=== PATIENT | male | born 1980 | race Caucasian/White ===

== ENCOUNTER 2019-02-03 14:14 | Inpatient (IN) | payer BC ==
[2019-02-03] MEDS ORDERED: NA CHLORIDE 0.9% 1,000 ML ONE (17:12)
[2019-02-03] MEDS ORDERED: ONDANSETRON 4 MG/2 ML VIAL ONE (17:12)
[2019-02-03] MEDS ORDERED: FENTANYL CITR 100 MCG/2 ML ONE (17:12)
[2019-02-03 17:40] LABS: Absolute Lymphocytes (CBC) 1.3 K/uL (0.7-4.9); Absolute Monocytes 3.2 K/uL (0.1-1.3); Absolute Neutrophil 30.6 K/uL (1.8-8.0); Basophils % 0.3 % (0-1.3); Hematocrit 46.4 % (39.6-49.0); Lymphocytes % 3.6 % (15.3-44.8); MPV 9.7 fL (7.6-11.3); Monocytes % 9.1 % (3.3-12.3); RBC Red Blood Cell Count 5.37 M/uL (4.33-5.43)
[2019-02-03 17:56] LABS: Potassium 3.9 mmol/L (3.5-5.1)
[2019-02-03] MEDS ORDERED: NA CHLORIDE 0.9% 250 ML ONE (18:42)
[2019-02-03] MEDS ORDERED: VANCOMYCIN 1 GM/VIAL ONE (18:42)
[2019-02-03] MEDS ORDERED: PIPER/TAZO/NS 3.375gm 3.375 GM/100 ML BAG ONE (18:42)
[2019-02-03] MEDS ORDERED: INSULIN -REGULAR HUMAN 50 UNIT/0.5 ML ML ONE (18:49)
[2019-02-03] MEDS ORDERED: ACETAMINOPHEN 500 MG TAB ONE (18:51)
[2019-02-03] MEDS ORDERED: NA CHLORIDE 0.9% 500 ML ONE (18:52)
--- NOTE | 2019-02-03 18:58 | RAD REPORT ---
EXAM DESCRIPTION: CTAbdomen Pelvis W Contrast - 02/03/2019 6:40 pm CLINICAL HISTORY: Abdominal pain. left buttock cellulitis COMPARISON: No comparisons TECHNIQUE: Biphasic CT imaging of the abdomen and pelvis was performed with 100 ml non-ionic IV cont rast. All CT scans are performed using dose optimization technique as appropriate and may include automated exposure control or mA/KV adjustment according to patient size. FINDINGS: The lung bases are clear. The liver, spleen, pancreas, adrenal glands and kidneys are within normal limits. No bowel obstruction, free air, free fluid or abscess. The appendix is normal. No evidence of signi ficant lymphadenopathy. No suspicious bony findings. Moderate inflammatory changes are present in the left ischiorectal fossa and left perirectal tissues with 24 x 11 mm left-sided perirectal abscess seen. IMPRESSION: 24 x 11 mm left perirectal abscess.
--- NOTE | 2019-02-03 20:17 | EDPHYS ---
Physician Documentation [facility] Name: Kyrie Olivas Age: 38 yrs Sex: Male : 1980 Arrival Date: 02/03/2019 Time: 14:15 Bed 15 Private MD: ED Physician Chrissy Vegas HPI: 02/03 17:00 This 38 yrs old Male presents to ER via Ambulatory with complaints of Abscess.cp 17:00 The patient presents with an abscess of the buttocks, The patient presents with cp cellulitis of the buttocks. 17:00 Onset: The symptoms/episode began/occurred 4 day(s) ago. cp 17:00 Associated signs and symptoms: Pertinent positives: fever, rectal pain, Pertinent cp negatives: discharge, drainage. Modifying factors: the symptoms are aggravated by movement, pressure. Severity of symptoms: in the emergency department the symptoms are unchanged, despite home interventions. Historical: - Allergies: 14:34 Red Dye; hb - Home Meds: 14:34 None [Active]; hb - PMHx: 14:34 Diabetes - NIDDM; hb - PSHx: 14:34 Abscess; hb - Immunization history:: Adult Immunizations. - Social history:: Smoking status: Patient uses tobacco products, smokes one pack cigarettes per day. - Ebola Screening: : No symptoms or risks identified at this time. ROS: 17:05 Constitutional: Positive for chills, fever, Negative for body aches, poor PO intake. cp 17:05 Eyes: Negative for injury, pain, redness, and discharge. cp 17:05 ENT: Negative for drainage from ear(s), ear pain, sore throat, difficulty swallowing, difficulty handling secretions. 17:05 Cardiovascular: Negative for chest pain, palpitations. 17:05 Respiratory: Negative for cough, shortness of breath, wheezing. 17:05 Abdomen/GI: Positive for rectal pain, Negative for abdominal pain, vomiting, diarrhea, constipation, black/tarry stool, rectal bleeding. 17:05 Skin: Positive for cellulitis, of the buttocks, Negative for rash. 17:05 Neuro: Negative for altered mental status, headache, weakness. 17:05 All other systems are negative. Exam: 17:10 Constitutional: The patient appears in no acute distress, alert, awake, cp non-diaphoretic, well developed, well nourished, uncomfortable. 17:10 Head/Face: Normocephalic, atraumatic. cp 17:10 Eyes: Periorbital structures: appear normal, Pupils: equal, round, and reactive to light and accomodation, Extraocular movements: intact throughout, Conjunctiva: normal, no exudate, no injection, Sclera: no appreciated abnormality, Lids and lashes: appear normal, bilaterally. 17:10 ENT: External ear(s): are unremarkable, Nose: is normal, Mouth: Lips: moist, Oral mucosa: pink and intact, moist, Posterior pharynx: is normal, airway is patent, no erythema, no exudate. 17:10 Neck: ROM/movement: is normal, is supple, without pain, no range of motions limitations, no meningismus, no nuchal rigidity. 17:10 Chest/axilla: Inspection: normal, Palpation: is normal, no crepitus, no tenderness. 17:10 Cardiovascular: Rate: tachycardic, Rhythm: regular. 17:10 Respiratory: the patient does not display signs of respiratory distress, Respirations: normal, no use of accessory muscles, no retractions, no splinting, no tachypnea, labored breathing, is not present, Breath sounds: are clear throughout, no decreased breath sounds, no stridor, no wheezing. 17:10 Abdomen/GI: Inspection: abdomen appears normal, Bowel sounds: active, all quadrants, Palpation: abdomen is soft and non-tender, in all quadrants, rebound tenderness, is not appreciated, voluntary guarding, is not appreciated, involuntary guarding, is not appreciated, Rectal exam: tenderness, that is moderate. 17:10 Skin: cellulitis, that is mild, irregular, on the left buttock. 17:10 Neuro: Orientation: to person, place \T\ time. Mentation: is normal, Cerebellar function: is grossly normal, Motor: moves all fours, strength is normal, Sensation: is normal. Vital Signs: 14:33 BP 109 / 84; Pulse 106; Resp 20; Temp 99.5; Pulse Ox 99% on R/A; Pain 9/10; hb 15:00 Weight 79.38 kg (R); iw 18:20 BP 110 / 82; Pulse 96; Resp 17; Temp 102.9(O); Pulse Ox 98% on R/A; Pain 3/10; sg 20:11 BP 111 / 74; Pulse 91; Resp 16; Temp 99.6(O); Pulse Ox 98% on R/A; jb4 21:00 BP 90 / 58; Pulse 90; Resp 16; Pulse Ox 98% on R/A; jb4 22:00 BP 108 / 79; Pulse 91; Resp 16; Pulse Ox 100% on R/A; jb4 MDM: 16:34 Patient medically screened. 19:15 Data reviewed: vital signs, nurses notes, lab test result(s), radiologic studies, CT cp scan. 19:15 Response to treatment: the patient's symptoms have mildly improved after treatment, and cp as a result, I will admit patient. 20:10 Physician consultation: Saeid Noguera MD. 02/04 10:13 Physician consultation:. kyung 02/03 16:57 Order name: CBC with Diff; Complete Time: 00:01 cp 02/03 20:04 Interpretation: Normal except: WBC 35.2; HEIDY% 87.0; LYM% 3.6; NEUT A 30.6; MNA 3.2. 02/03 16:57 Order name: BMP; Complete Time: 18:04 02/03 19:06 Interpretation: Normal except: NA 128; CL 92; GLUC 352; GFR 66; CA 8.2. 02/03 16:57 Order name: Lactate; Complete Time: 18:04 cp 02/03 16:57 Order name: Procalcitonin; Complete Time: 18:34 02/03 16:57 Order name: Blood Culture Adult (2) 02/03 20:21 Order name: Manual Differential; Complete Time: 00:01 EDMS 02/04 00:01 Interpretation: Normal except: SEGS 82; BANDS [F] 4; LYM 5. cp 02/04 00:40 Order name: Lactate Sepsis 2 HR Follow-up; Complete Time: 10:12 EDMS 02/04 06:01 Order name: Basic Metabolic Panel; Complete Time: 10:12 EDMS 02/04 06:06 Order name: CBC with Automated Diff; Complete Time: 10:12 EDMS 02/04 08:13 Order name: Glucose, Ancillary Testing; Complete Time: 10:12 EDMS 02/04 08:13 Order name: Glucose, Ancillary Testing; Complete Time: 10:12 EDMS 02/04 08:13 Order name: Glucose, Ancillary Testing; Complete Time: 10:12 EDMS 02/04 08:13 Order name: Glucose, Ancillary Testing; Complete Time: 10:12 EDMS 02/04 12:44 Order name: Glucose, Ancillary Testing EDMS 02/03 16:57 Order name: CT Abd/Pelvis - W/Contrast; Complete Time: 19:05 cp 02/03 16:57 Order name: Accucheck Blood Glucose; Complete Time: 16:57 cp Administered Medications: 02/03 08:45 Drug: Tylenol 1000 mg Route: PO; sg 20:00 Follow up: Response: No adverse reaction; Temperature is decreased jb4 17:30 Drug: fentaNYL (PF) 25 mcg Route: IVP; Site: left antecubital; sg 17:30 Drug: Zofran 4 mg Route: IVP; Site: left antecubital; sg 18:35 Drug: NS 0.9% (30 ml/kg) 30 ml/kg Route: IV; Rate: bolus; Site: left antecubital; sg 21:45 Follow up: Response: No adverse reaction; IV Status: Completed infusion; IV Intake: jb4 2000ml 18:50 Drug: Zosyn 3.375 grams Route: IVPB; Infused Over: 60 mins; Site: left antecubital; sg 20:00 Follow up: Response: No adverse reaction; IV Status: Completed infusion jb4 18:50 Drug: Insulin Regular Human 10 units {Co-Signature: iw (Rima Boudreaux RN).} Route: sg IVP; Site: left antecubital; 18:54 Not Given (Other Intervention Used): NS 0.9% 1000 ml IV at 1 bolus Per protocol; 1000 sg mL bolus 20:29 Drug: vancoMYCIN 1 grams Route: IVPB; Infused Over: 2 hrs; Site: left antecubital; jb4 22:29 Follow up: Response: No adverse reaction; IV Status: Completed infusion; IV Intake: jb4 250ml 23:03 Not Given (Patient Refused): morphine 2 mg IVP once jb4 Disposition: 02/04 20:41 Co-signature as Attending Physician, Chrissy Vegas MD. ma2 Disposition: 02/03/19 20:17 Hospitalization ordered by Quinn Doe for Inpatient Admission. Preliminary diagnosis are Abscess of anal and rectal regions, Other sepsis. - Bed requested for Telemetry/MedSurg (Inpatient). - Status is Inpatient Admission. hb - Condition is Stable. - Problem is new. - Symptoms have improved. UTI on Admission? No Signatures: Dispatcher [employer] EDMS Evonne Rudolph RN AVTAR Analia Carrington RN AVTAR Arnulfo Liu RN RN Mino Vargas PA PA cp Catherine Newberry RN RN Colby Blanchard RN RN jb4 Chrissy Vegas MD MD ma2 Rima Boudreaux RN iw Corrections: (The following items were deleted from the chart) 02/03 19:06 19:06 Normal except: NA 128; CL 92; GLUC 352; GFR 66. cp cp 20:04 19:05 Normal except: WBC 35.2; HEIDY% 87.0; LYM% 3.6. cp cp 20:20 20:17 Hospitalization Ordered by Quinn Doe MD for Inpatient Admission. Preliminary diagnosis is Abscess of anal and rectal regions; Other sepsis. Bed requested for Telemetry/MedSurg (observation). Status is Inpatient Admission. Condition is Stable. Problem is new. Symptoms have improved. UTI on Admission? No. cp 02/04 12:42 02/03 20:20 02/03/2019 20:17 Hospitalization Ordered by Quinn Doe MD for Inpatient dw Admission. Preliminary diagnosis is Abscess of anal and rectal regions; Other sepsis. Bed requested for [facility] ER HOLD. Status is Inpatient Admission. Condition is Stable. Problem is new. Symptoms have improved. UTI on Admission? No. mw 02/04 13:37 12:42 02/03/2019 20:17 Hospitalization Ordered by Quinn Doe MD for Inpatient hb Admission. Preliminary diagnosis is Abscess of anal and rectal regions; Other sepsis. Bed requested for Telemetry/MedSurg (Inpatient). Status is Inpatient Admission. Condition is Stable. Problem is new. Symptoms have improved. UTI on Admission? No. dw
--- NOTE | 2019-02-03 20:17 | ER ---
Nurse's Notes [facility] Name: Kyrie Olivas Age: 38 yrs Sex: Male : 1980 Arrival Date: 02/03/2019 Time: 14:15 Bed 15 Private MD: Diagnosis: Abscess of anal and rectal regions;Other sepsis Presentation: 02/03 14:32 Presenting complaint: Abscess on left buttock x 3-4 days, subjective fever and N/V hb since yesterday. Transition of care: patient was not received from another setting of care. Onset of symptoms was January 30, 2019. Risk Assessment: Do you want to hurt yourself or someone else? Patient reports no desire to harm self or others. Care prior to arrival: None. 14:32 Method Of Arrival: Ambulatory hb 14:32 Acuity: GINO 3 hb Historical: - Allergies: 14:34 Red Dye; hb - Home Meds: 14:34 None [Active]; hb - PMHx: 14:34 Diabetes - NIDDM; hb - PSHx: 14:34 Abscess; hb - Immunization history:: Adult Immunizations. - Social history:: Smoking status: Patient uses tobacco products, smokes one pack cigarettes per day. - Ebola Screening: : No symptoms or risks identified at this time. Screenin:01 Abuse screen: Denies threats or abuse. Denies injuries from another. Nutritional sg screening: No deficits noted. Tuberculosis screening: No symptoms or risk factors identified. Never had TB. Fall Risk None identified. Assessment: 16:42 General: Appears in no apparent distress. uncomfortable, slender, well groomed, well sg developed, well nourished, Behavior is calm, cooperative, appropriate for age. Pain: Complains of pain in buttocks Quality of pain is described as tender. Neuro: Level of Consciousness is awake, alert, obeys commands. Cardiovascular: Capillary refill is brisk in bilateral fingers Patient's skin is warm and dry. Chest pain is denied. Respiratory: Airway is patent Respiratory effort is even, unlabored, Respiratory pattern is regular, symmetrical. GI: Abdomen is flat, non-distended, Bowel sounds present X 4 quads. : No signs and/or symptoms were reported regarding the genitourinary system. EENT: No signs and/or symptoms were reported regarding the EENT system. Derm: Skin is intact, is healthy with good turgor, Skin is dry, Skin is pale, Skin temperature is warm Abscess located on left gluteus micky is quarter sized, is red, is raised. Musculoskeletal: No signs and/or symptoms reported regarding the musculoskeletal system. 19:15 Reassessment: Patient appears in no apparent distress at this time. Patient and/or jb4 family updated on plan of care and expected duration. Pain level reassessed. Patient is alert, oriented x 3, equal unlabored respirations, skin warm/dry/pink. 20:11 Reassessment: Patient appears in no apparent distress at this time. Patient and/or jb4 family updated on plan of care and expected duration. Pain level reassessed. Patient is alert, oriented x 3, equal unlabored respirations, skin warm/dry/pink. Temp is 99.6, pt reports feeling better. 21:00 Reassessment: Patient appears in no apparent distress at this time. Patient and/or jb4 family updated on plan of care and expected duration. Pain level reassessed. Patient is alert, oriented x 3, equal unlabored respirations, skin warm/dry/pink. 22:00 Reassessment: Patient appears in no apparent distress at this time. Patient and/or jb4 family updated on plan of care and expected duration. Pain level reassessed. Patient is alert, oriented x 3, equal unlabored respirations, skin warm/dry/pink. Pt admitted to ER hold , See [facility] charting. Vital Signs: 14:33 BP 109 / 84; Pulse 106; Resp 20; Temp 99.5; Pulse Ox 99% on R/A; Pain 9/10; hb 15:00 Weight 79.38 kg (R); iw 18:20 BP 110 / 82; Pulse 96; Resp 17; Temp 102.9(O); Pulse Ox 98% on R/A; Pain 3/10; sg 20:11 BP 111 / 74; Pulse 91; Resp 16; Temp 99.6(O); Pulse Ox 98% on R/A; jb4 21:00 BP 90 / 58; Pulse 90; Resp 16; Pulse Ox 98% on R/A; jb4 22:00 BP 108 / 79; Pulse 91; Resp 16; Pulse Ox 100% on R/A; jb4 ED Course: 14:15 Patient arrived in ED. as 14:33 Triage completed. hb 14:33 Arm band placed on. hb 16:29 Mino Patel PA is PHCP. cp 16:29 Chrissy Vegas MD is Attending Physician. cp 16:57 Arnulfo Liu, RN is Primary Nurse. sg 17:00 No provider procedures requiring assistance completed. Initial lab(s) drawn, by me, sg sent to lab. First set of blood cultures drawn by me. Inserted saline lock: 20 gauge in left antecubital area, using aseptic technique. Blood collected. 17:10 Second set of blood cultures drawn by me. sg 18:[address] via wheelchair. vm2 18:40 CT Abd/Pelvis - W/Contrast In Process Unspecified. EDMS 19:00 Patient has correct armband on for positive identification. Placed in gown. Bed in low jb4 position. Call light in reach. Side rails up X 1. Pulse ox on. NIBP on. 20:16 Quinn Doe MD is Hospitalizing Provider. cp 22:00 Patient admitted, IV remains in place. [facility] 03 07:11 Primary Nurse role handed off by Arnulfo Liu, AVTAR 13:23 Catherine Newberry, AVTAR is Primary Nurse. hb Administered Medications: 02/03 08:45 Drug: Tylenol 1000 mg Route: PO; sg 20:00 Follow up: Response: No adverse reaction; Temperature is decreased jb4 17:30 Drug: fentaNYL (PF) 25 mcg Route: IVP; Site: left antecubital; sg 17:30 Drug: Zofran 4 mg Route: IVP; Site: left antecubital; sg 18:35 Drug: NS 0.9% (30 ml/kg) 30 ml/kg Route: IV; Rate: bolus; Site: left antecubital; sg 21:45 Follow up: Response: No adverse reaction; IV Status: Completed infusion; IV Intake: jb4 2000ml 18:50 Drug: Zosyn 3.375 grams Route: IVPB; Infused Over: 60 mins; Site: left antecubital; sg 20:00 Follow up: Response: No adverse reaction; IV Status: Completed infusion jb4 18:50 Drug: Insulin Regular Human 10 units {Co-Signature: iw (Rima Boudreaux RN).} Route: sg IVP; Site: left antecubital; 18:54 Not Given (Other Intervention Used): NS 0.9% 1000 ml IV at 1 bolus Per protocol; 1000 sg mL bolus 20:29 Drug: vancoMYCIN 1 grams Route: IVPB; Infused Over: 2 hrs; Site: left antecubital; jb4 22:29 Follow up: Response: No adverse reaction; IV Status: Completed infusion; IV Intake: jb4 250ml 23:03 Not Given (Patient Refused): morphine 2 mg IVP once jb4 Intake: 21:45 IV: 2000ml; Total: 2000ml. jb4 22:29 IV: 250ml; Total: 2250ml. jb4 Outcome: 20:17 Decision to Hospitalize by Provider. cp 22:00 Admitted to ER Hold. Please see [facility] for further documentation. jb4 22:00 Condition: stable 22:00 Discharge instructions given to patient, Instructed on the need for admit, Demonstrated understanding of instructions. 02/04 13:37 Patient left the ED. hb Signatures: Dispatcher [employer] EDMS Colette Cristina Steven, Milvia Aguilar RN, Irene, RN AVTAR iw Mino Patel PA PA cp Baxter, Heather, RN RN Colby Blanchard RN RN jb4 McGuire, Victoria [facility] Rima Boudreaux RN iw Corrections: (The following items were deleted from the chart) 00:49 02/03 22:00 Reassessment: Patient appears in no apparent distress at this time. Patient jb4 and/or family updated on plan of care and expected duration. Pain level reassessed. Patient is alert, oriented x 3, equal unlabored respirations, skin warm/dry/pink. jb4
[2019-02-03 20:21] LABS: Blood Morphology Comment NOT SEEN (NOT SEEN); Platelet Estimate ADEQ; Platelets, Giant PRESENT
--- NOTE | 2019-02-03 21:24 | P.HP ---
Certification for Inpatient Patient admitted to: Inpatient With expected LOS: >2 Midnights Practitioner: I am a practitioner with admitting privileges, knowledge of patient current condition, hospital course, and medical plan of care. Services: Services provided to patient in accordance with Admission requirements found in Title 42 Section 412.3 of the Code of Federal Regulations Patient History Date of Service: 02/03/19 Reason for admission: sepsis, perirectal abscess History of Present Illness: Mr Olivas is a 38 years old male with history of DM II, perirectal abscess, who came to ED complaining of progressive pain in his left buttock. He also has had fever at home. The pain is similar to previous episode of perirectal abscess. He denied any drainage. At arrival his temp was 99.5 F, BP 109/84. Lab work shows leukocytosis 35.2K, with bandemia, also elevated lactate and procalcitonin. CT abd/pelvis remarkable for a 24 x 11 mm left prerectal abscess. Allergies Red Dye Allergy (Uncoded 11/08/17 01:55) Unknown Home Medications: Metformin HCl [Glucophage*] 500 mg PO BIDWM #60 tab 11/08/17 Sulfamethoxazole/Trimethoprim [Bactrim Ds Tablet] 1 each PO BID #20 tablet 11/08 - Past Medical/Surgical History Diabetic: Yes -: NIDDM -: perirectal abscess -: I&D perirectal abscess - Social History Smoking Status: Current every day smoker Counseled patient to stop smoking for: less than 10 minutes Alcohol use: No CD- Drugs: No Caffeine use: No Place of Residence: Home Review of Systems 10-point ROS is otherwise unremarkable Physical Examination - Physical Exam General: Alert, In no apparent distress HEENT: Atraumatic, PERRLA, Mucous membr. moist/pink, EOMI, Sclerae nonicteric Neck: Supple, 2+ carotid pulse no bruit, No LAD, Without JVD or thyroid abnormality Respiratory: Clear to auscultation bilaterally, Normal air movement Cardiovascular: Regular rate/rhythm, Normal S1 S2 Gastrointestinal: Normal bowel sounds, No tenderness Musculoskeletal: No tenderness Integumentary: No rashes Neurological: Normal speech, Normal strength at 5/5 x4 extr, Normal tone, Normal affect Lymphatics: No axilla or inguinal lymphadenopathy Rectal: Induration (left perianal area), Tenderness - Studies Laboratory Data (last 24 hrs) 02/03/19 17:00: Sodium 128 L, Potassium 3.9, BUN 17, Creatinine 1.22, Glucose 352 H 02/03/19 17:00: WBC 35.2 H*, Hgb 15.9, Hct 46.4, Plt Count 174 Assessment and Plan - Problems (Diagnosis) (1) Diabetes mellitus Current Visit: Yes Status: Acute Qualifiers: Diabetes mellitus type: type 2 Diabetes mellitus shelter insulin use: without parts counterman use Diabetes mellitus complication status: with unspecified complications Qualified Code(s): E11.8 - Type 2 diabetes mellitus with unspecified complications (2) Perirectal abscess Onset Date: 11/08/17 Current Visit: No Status: Acute - Plan Will keep the patient NPO after MN, start empiric ABX treatment. blood cultures in process, Aggressive IV fluids. Consult Surgery for I&D. - Advance Directives Does patient have a Living Will: No Does patient have a Durable POA for Healthcare: Yes - Code Status/Comfort Care Code Status Assessed: Yes Code Status: Full Code
[2019-02-03] MEDS ORDERED: ACETAMINOPHEN 500 MG TAB PO PRN (21:54)
[2019-02-03] MEDS ORDERED: ONDANSETRON 4 MG/2 ML VIAL IV PRN (21:54)
[2019-02-03] MEDS: NA CHLORIDE 0.9% 1,000 ML IV SCH (22:00)
[2019-02-03] MEDS: KETOROLAC 30 MG/ML INJ IV PRN (22:30)
[2019-02-03] MEDS ORDERED: KETOROLAC 30 MG/ML INJ ONE (22:55)
[2019-02-04] MEDS ORDERED: INSULIN -REGULAR HUMAN 50 UNIT/0.5 ML ML ONE ×3 (00:44→12:54)
[2019-02-04 01:18] VITALS: BMI 28.2
[2019-02-04] MEDS ORDERED: ACETAMINOPHEN 500 MG TAB ONE (04:11)
[2019-02-04] MEDS ORDERED: PIPER/TAZO/NS 3.375gm 3.375 GM/100 ML BAG ONE ×2 (05:09→12:54)
[2019-02-04] MEDS ORDERED: KETOROLAC 30 MG/ML INJ ONE ×2 (05:09→12:54)
[2019-02-04] MEDS: KETOROLAC 30 MG/ML INJ IV PRN ×2 (05:35→12:55)
[2019-02-04] MEDS: PIPER/TAZO/NS 3.375gm 3.375 GM/100 ML BAG IVPB SCH ×5 (05:39→20:21)
[2019-02-04 05:59] LABS: Potassium 4.1 mmol/L (3.5-5.1)
[2019-02-04] MEDS: NA CHLORIDE 0.9% 1,000 ML IV SCH ×3 (06:00→21:02)
[2019-02-04] MEDS: INSULIN -REGULAR HUMAN 50 UNIT/0.5 ML ML SQ SCH ×5 (06:00→22:00)
[2019-02-04 06:04] LABS: Absolute Monocytes 2.5 K/uL (0.1-1.3); Absolute Neutrophil 25.6 K/uL (1.8-8.0); Basophils % 0.2 % (0-1.3); Hematocrit 42.3 % (39.6-49.0); Lymphocytes % 3.5 % (15.3-44.8); MPV 9.9 fL (7.6-11.3); Monocytes % 8.5 % (3.3-12.3)
[2019-02-04] MEDS ORDERED: NA CHLORIDE 0.9% 500 ML ONE (06:39)
[2019-02-04] MEDS ORDERED: VANCOMYCIN 1 GM/VIAL ONE (06:39)
[2019-02-04] MEDS: VANCOMYCIN 1.75 GM in NA CHLORIDE 0.9% 500 ML IVPB SCH ×2 (06:42→17:42)
[2019-02-04] MEDS ORDERED: NA CHLORIDE 0.9% 1,000 ML ONE ×2 (06:55→14:06)
[2019-02-04] MEDS ORDERED: VANCOMYCIN 1 GM in NA CHLORIDE 0.9% 500 ML IVPB SCH (09:00)
[2019-02-04] MEDS ORDERED: PROPOFOL 200 MG/20 ML VIAL IV ONE (14:56)
[2019-02-04] MEDS ORDERED: LIDOCAINE 2% MPF 5 ML VIAL ONE (14:56)
[2019-02-04] MEDS ORDERED: GLUCAGON 1 MG/VIAL IM PRN (15:08)
[2019-02-04] MEDS ORDERED: D50W 25 GM/50 ML SYRINGE IV PRN (15:08)
--- NOTE | 2019-02-04 15:25 | PREOPCON ---
Date of Consultation: 02/04/2019 Reason: Perirectal pain. History Of Present Illness: The patient is a 38-year-old gentleman who comes in with left-sided ted rectal pain over the last several days associated with low-grade fever. No drainage. Significant le ukocytosis. No diarrhea or constipation. No blood in his stool. Had previous such episode about a year ago. Then he underwent incision and drainage. No sore throat, runny nose, cough, headaches, or dizziness. No chest pain. Review of Systems: Otherwise unremarkable. Medical History: Significant for noninsulin dependent diabetes, perirectal abscess. Past Surgical History: Previous incision and drainage of perirectal abscess. Allergies: INCLUDE RED DYE. Social History: He does smoke. He has been counseled. He denies drinking. Family History: Noncontributory. Physical Examination: Vital Signs: Stable. Currently he is afebrile. Temperature is 99.4. General: He is awake, alert, oriented x3. Head and Neck: Cranial nerves 2 through 12 are grossly within normal limits. No neck masses. No JV D. Throat clear. Neck supple. Chest: Clear. Heart: S1, S2. Abdomen: Soft, nondistended, nontender. Positive bowel sounds. Extremities: Neurovascularly intact. Neuro: Nonfocal. Perirectal exam: Reveals left-sided marked induration and small fluctuance noted with erythema, warm th and edema. Laboratory Data: White count on admission was 35.2, currently is 29.1 with a left shift. Chemistry reviewed, glucose is 277. His lactic acid was 1.8 and that was 3 on admission. His procalcitonin is 1.72. He had a CT of the abdomen and pelvis done that showed 24 x 11 mm left perirectal abscess with modera te inflammatory changes present in the left ischiorectal fossa. Left perirectal tissue with 24 x 11 mm left-sided perirectal abscess seen. Assessment: Left perirectal abscess. Plan: Admit n.p.o., IV fluid, IV antibiotic, to the OR for exam under anesthesia, rigid proctoscopy, incision and drainage and debridement of left perirectal abscess. The patient probably has a fistul a, we will look for that, however we will await resolution of this acute process. He may need any co lorectal surgeon evaluation. The patient understands risks, benefits, and alternatives and agrees to procedure. /KAYLEN Voice ID: [id number] Report ID: [id number]
[2019-02-04] MEDS ORDERED: MIDAZOLAM HCL 2 MG/2 ML INJ ONE (15:49)
[2019-02-04] MEDS ORDERED: FENTANYL CITR 100 MCG/2 ML ONE (15:49)
[2019-02-04] MEDS ORDERED: ONDANSETRON 4 MG/2 ML VIAL ONE (15:49)
[2019-02-04] MEDS ORDERED: BUPIVACAINE 0.5% PF 10 ML VIAL ONE (15:49)
--- NOTE | 2019-02-04 16:29 | P.OP ---
Preoperative diagnosis: Left Antonina-Rectal Abscess Postoperative diagnosis: as above Primary procedure: EUA, I and D and Debridement Left Antonina-Rectal Abscess Anesthesia: General Estimated blood loss: min Specimen: pus Findings: as above Complications: None Transferred to: Recovery Room Condition: Good
[2019-02-04] MEDS ORDERED: CHLORHEXIDINE GLUCO 4% 120 ML TOP SCH (17:00)
[2019-02-04] MEDS ORDERED: PIPER/TAZO/NS 3.375gm 3.375 GM/100 ML BAG IVPB SCH (18:45)
[2019-02-04] MEDS: HYDROMORPHONE HCL 1 MG/ML INJ IV PRN (20:22)
[2019-02-04] MEDS: MUPIROCIN 2% OINT 22GM TUBE TOP SCH (20:22)
--- NOTE | 2019-02-04 22:39 | PN ---
Date of Progress Note: 02/04/2019 Subjective: Patient seen and examined. Chart reviewed and case discussed with RN and Dr. Noguera. Th e patient had I and D for perirectal abscess, did well postoperatively. Still having some pain. Medications: List reviewed. Physical Examination: Vital Signs: Temperature 97.6, heart rate 98, blood pressure 110/72, respirations 20, O2 98% on room air. General: Awake, alert, oriented x3. Some mild distress. Ill-appearing male. CV: S1, S2. Regular rate and rhythm. Peripheral pulses present. No murmurs. Respiratory: Moving air well bilaterally. No wheezing or stridor. Gastrointestinal: Abdomen is soft, nontender, nondistended. Positive bowel sounds. No guarding or rigidity. Extremities: No clubbing, cyanosis, or edema. Skin: The patient has left perirectal abscess. Neuro: Cranial nerves 2 through 12 intact grossly. No focal neurological deficits. Speech is goldie l. Laboratory Data: Sodium 133, potassium 4.1, chloride 100, CO2 25, BUN 20, creatinine 1.11, calcium 7 .2. WBC 29.1, H and H 14.7 and 42.3, platelets 164, neutrophils 87%. Blood cultures show no growth to date. Wound cultures are pending. Assessment And Plan: A 38-year-old male with 1.Perirectal abscess, status post incision and drainage. We will continue with IV antibiotics. The patient has a very high white count of 35,000, improved to 29,000. Cultures are pending. Appreciat e Dr. Noguera's input. 2.Diabetes mellitus type 2, gnp-sxulvff-ifgfxphnz, with hyperglycemia, uncontrolled. We will check hemoglobin A1c. Continue with sliding scale insulin and continue Accu-Cheks. 3.Overweight. Body mass index 28. 4.Deep vein thrombosis prophylaxis. No chemical anticoagulation due to surgery. Plan: 1.Continue on vanc and Zosyn. 2.Pain control. 3.Wound care. 4.Monitor cultures. 5.Likely discharge in the next 24-48 hours depending on clinical response. SA/MODL Voice ID: [id number] Report ID: [id number]
[2019-02-05] MEDS: PIPER/TAZO/NS 3.375gm 3.375 GM/100 ML BAG IVPB SCH ×3 (01:14→17:02)
[2019-02-05] MEDS: NA CHLORIDE 0.9% 1,000 ML IV SCH ×4 (01:14→22:00)
--- NOTE | 2019-02-05 02:10 | OP ---
Date of Procedure: 02/04/2019 Surgeon: Saeid Noguera MD Preoperative Diagnosis: Left perirectal abscess. Postoperative Diagnosis: Left perirectal abscess. Procedure: Exam under anesthesia, incision and drainage, and debridement of left perirectal abscess. Estimated Blood Loss: Minimal. Specimen: Pus. Findings: As above. Anesthesia: General. Complications: None. Disposition: The patient tolerated the procedure well in stable condition, taken to recovery in good general condition. Description Of Procedure: The patient was brought to the OR, placed in supine position. General ane sthesia was begun. The patient was placed in lithotomy position, prepped and draped in usual sterile fashion. Exam under anesthesia revealed marked induration in the entire left gluteal area next to t he anus. Rigid proctoscopy could not be done as the patient had liquid stool coming out of his anus. This was cleaned and then Marcaine 0.5% was infiltrated and a 5-cm incision was made radially in th e left side of the anus at the 5 o'clock position and then subcutaneous tissue was divided. Deep in the subcutaneous tissue, a large ischiorectal abscess was identified. Pus was evacuated. Loculation s were broken up. Cultures were done. Necrotic tissue was debrided. Wound was irrigated. Bleeding was controlled with cautery and then wet-to-dry normal saline dressing change was applied. The patient tolerated the procedure in stable condition and taken to recovery in good general condition. /MODL Voice ID: [id number] Report ID: [id number]
[2019-02-05] MEDS: HYDROCODONE/APAP 7.5/325 MG TAB PO PRN ×2 (04:48→10:13)
[2019-02-05] MEDS: VANCOMYCIN 1.75 GM in NA CHLORIDE 0.9% 500 ML IVPB SCH (05:37)
[2019-02-05] MEDS: INSULIN -REGULAR HUMAN 50 UNIT/0.5 ML ML SQ SCH ×4 (07:30→21:00)
[2019-02-05] MEDS: MUPIROCIN 2% OINT 22GM TUBE TOP SCH ×2 (09:01→21:22)
[2019-02-05 09:57] LABS: Absolute Lymphocytes (CBC) 1.5 K/uL (0.7-4.9); Absolute Monocytes 1.7 K/uL (0.1-1.3); Absolute Neutrophil 20.3 K/uL (1.8-8.0); Basophils % 0.3 % (0-1.3); Eosinophils % 0.1 % (0-4.4); Hematocrit 39.9 % (39.6-49.0); Lymphocytes % 6.3 % (15.3-44.8); MPV 9.6 fL (7.6-11.3); Monocytes % 7.2 % (3.3-12.3)
[2019-02-05 10:24] LABS: ALT/SGPT 22 U/L (12-78); AST/SGOT 17 U/L (15-37); Alkaline Phosphatase 104 U/L (45-117); BUN Blood Urea Nitrogen 14 mg/dL (7-18); Bicarbonate 26 mmol/L (21-32); Bilirubin Total 0.5 mg/dL (0.2-1.0); Glucose Level 198 mg/dL (74-106); Potassium 3.6 mmol/L (3.5-5.1); Protein, Total 5.5 g/dL (6.4-8.2); Sodium Level 136 mmol/L (136-145)
[2019-02-05] MEDS ORDERED: POTASSIUM 25 MEQ EFFERV TAB PO ONE (11:00)
[2019-02-05] MEDS: HYDROMORPHONE HCL 1 MG/ML INJ IV PRN ×2 (15:33→22:02)
--- NOTE | 2019-02-05 16:28 | PN ---
Date of Progress Note: 02/05/2019 Subjective: Patient is awake, alert, no complaint. Vital signs stable, afebrile. White count is do wn to 23.6. There is still a left shift. Chemistry reviewed. Glucose is 198. Hemoglobin A1c is 11 .4. Wound culture is pending. Assessment: Status post incision and drainage and debridement of left perirectal abscess. Recommendations: Continue IV antibiotics as ordered. Check cultures. Adjust antibiotics accordingl y. Continue the wound care as ordered. [facility] in my clinic upon disc harge. LAURA/MODPadmini Voice ID: [id number] Report ID: [id number]
--- NOTE | 2019-02-05 19:44 | PN ---
Date of Progress Note: 02/05/2019 Subjective: The patient is seen and examined. Chart reviewed and case discussed with RN and Dr. Ian potter. The patient is doing well. Pain is controlled. Medications: List reviewed. Objective: Vital Signs: Temperature 98.2, heart rate 96, blood pressure 103/61, respirations rate 1 9, O2 95% on room air. General: Awake, alert and oriented x3, in some mild distress due to pain, ill-appearing male. CV: S1, S2. Regular rate and rhythm. Peripheral pulses present. Respiratory: Moving air well bilaterally. No wheezing or stridor. Gastrointestinal: Abdomen is soft, nontender, nondistended. Positive bowel sounds. Extremities: No clubbing, cyanosis, edema. Skin: Rectal abscess, status post I and D and bandaged. Neurologic: Nonfocal. Laboratory Data: Sodium 136, potassium 3.6, chloride 103, CO2 26, BUN 14, creatinine 0.75, glucose 1 98. Hemoglobin A1c 11.4%. Lactate 0.7. Calcium 6.9, albumin is 2. Corrected calcium is 8.8. WBC 23.6, H and H 13.6 and 39.9, platelets 165, neutrophils 86%, no bands. Cultures, no growth to date. Wound cultures growing gram-positive cocci in pairs and chains. No ID or sensitivity available. Gr am-negative rods also present from other wound culture. Assessment And Plan: A 38-year-old male with: 1.Perirectal abscess, status post incision and drainage. Continue antibiotics. Blood cultures are negative, however, wound cultures growing gram-positive cocci and gram-negative rods. We will await ID and sensitivity. White count still elevated at 23,000. Dr. Noguera recommends outpatient followup with colorectal specialist. The patient may have fistula formation due to recurrent perirectal absce sses. 2.Pseudo hypocalcemia. Corrected calcium is 8.8 due to low albumin. We will continue to monitor. 3.Severe protein-calorie malnutrition. Albumin is 2. Dietitian referral. 4.Diabetes mellitus type 2 non-insulin requiring with hyperglycemia, uncontrolled. Hemoglobin A1c i s greater than 11%. We will start on long-acting insulin. Continue Accu-Cheks. 5.Overweight. BMI 28.2. Plan: Follow up on ID and sensitivity. Continue IV antibiotics, continue IV fluids, pain control an d wound care. Discharge in the next 24 to 48 hours depending on clinical response. /KAYLEN Voice ID: [id number] Report ID: [id number]
[2019-02-05] MEDS: VANCOMYCIN 2 GM in NA CHLORIDE 0.9% 500 ML IVPB SCH (19:50)
[2019-02-06] MEDS: PIPER/TAZO/NS 3.375gm 3.375 GM/100 ML BAG IVPB SCH ×3 (00:55→17:31)
[2019-02-06] MEDS: HYDROMORPHONE HCL 1 MG/ML INJ IV PRN ×5 (03:15→22:05)
[2019-02-06 04:55] LABS: Absolute Lymphocytes (CBC) 1.9 K/uL (0.7-4.9); Absolute Monocytes 1.8 K/uL (0.1-1.3); Absolute Neutrophil 20.6 K/uL (1.8-8.0); Basophils % 0.3 % (0-1.3); Eosinophils % 0.4 % (0-4.4); Hematocrit 39.7 % (39.6-49.0); Lymphocytes % 7.8 % (15.3-44.8); MPV 9.7 fL (7.6-11.3); Monocytes % 7.2 % (3.3-12.3); RBC Red Blood Cell Count 4.54 M/uL (4.33-5.43)
[2019-02-06 05:08] LABS: BUN Blood Urea Nitrogen 11 mg/dL (7-18); Bicarbonate 26 mmol/L (21-32); Glucose Level 180 mg/dL (74-106); Magnesium 2.3 mg/dL (1.8-2.4); Potassium 3.6 mmol/L (3.5-5.1); Sodium Level 137 mmol/L (136-145)
[2019-02-06 05:26] LABS: Blood Morphology Comment NOT SEEN (NOT SEEN); Platelet Estimate ADEQ
[2019-02-06] MEDS: VANCOMYCIN 2 GM in NA CHLORIDE 0.9% 500 ML IVPB SCH ×2 (06:46→17:31)
[2019-02-06] MEDS: INSULIN -REGULAR HUMAN 50 UNIT/0.5 ML ML SQ SCH ×4 (07:30→21:00)
[2019-02-06] MEDS ORDERED: POTASSIUM 25 MEQ EFFERV TAB PO ONE (09:00)
[2019-02-06] MEDS: NA CHLORIDE 0.9% 1,000 ML IV SCH ×3 (09:20→22:06)
[2019-02-06] MEDS: MUPIROCIN 2% OINT 22GM TUBE TOP SCH ×2 (09:21→22:05)
[2019-02-06] MEDS: INSULIN GLARGINE 100 UNITS/ML SQ SCH (09:36)
[2019-02-06] MEDS: HYDROCODONE/APAP 7.5/325 MG TAB PO PRN (10:27)
[2019-02-06 11:08] LABS: Urine Appearance CLEAR; Urine Bilirubin NEGATIVE (NEG); Urine Blood NEGATIVE (NEG); Urine Color YELLOW; Urine Glucose 2+ (NEG); Urine Protein NEGATIVE (NEG); Urine Specific Gravity 1.025 (1.005-1.030); Urine pH 6.5 (5.0-7.0)
[2019-02-06 11:10] LABS: Urine Microscopic Reflex ORDER UMIC
[2019-02-06 11:29] LABS: Urine Bacteria <20 /HPF (NONE SEEN); Urine Culture Reflex Order NOT NEEDED; Urine RBC <5 /HPF (NONE SEEN)
--- NOTE | 2019-02-06 11:45 | RAD REPORT ---
EXAM DESCRIPTION: US - Urinary Bladder - 02/06/2019 11:36 am CLINICAL HISTORY: Bladder distention, urinary hesitancy, pelvic pain and pressure COMPARISON: CT February 03, 2019 FINDINGS: No urinary bladder wall thickening or mass. Ureteral jets were not observed during the exa mination. Urinary volume was 616 milliliters. Prostate gland is not well visualized on this examinati on. IMPRESSION: No bladder wall thickening or mass. Urinary volume 616 milliliters.
--- NOTE | 2019-02-06 18:24 | PN ---
Date of Progress Note: 02/06/2019 Subjective: The patient is awake, alert, no complaint except for some pain. Objective: Vital Signs: Stable, afebrile. Skin: Examination of the wound reveals in adequate packing with the iodoform being used and the woun d is fairly large and needs to be packed a little bit better. There was some purulence in it, which was evacuated. There is still some induration, but there is no further fluctuance. This wound just needs better packing. The erythema and edema are getting better. Assessment: Status post incision and drainage, and debridement of left perirectal abscess, probably secondary to fistula. Recommendation: Continue wound care as ordered. Nursing staff was instructed on how to properly do the wound care. Continue antibiotics. His cultures are pending and his white count is still elevate d at 24,000. Please note, the Gram stain shows gram-positive cocci in pairs and chains. IV antibioti cs. Await culture and sensitivity. Adjust antibiotics accordingly. Wound care is ordered. The pat ient requires inpatient IV antibiotics until his leukocytosis is improved. /MODL Voice ID: [id number] Report ID: [id number]
--- NOTE | 2019-02-06 20:30 | PN ---
Date of Progress Note: 02/06/2019 Subjective: The patient is seen and examined. Chart reviewed and case discussed with RN and Dr. Ian potter. The patient is still having high white count, however, clinically does not appear to be septic. Has had some low-grade fevers 99.4. Blood pressure has been in the one-teens. Still having some pa in, but states that overall he feels better. Medications: List reviewed. Physical Examination: Vital Signs: Temperature 99.4, heart rate 81, blood pressure 108/56, respirations 16, O2 98% on room air. General: Awake, alert, oriented x3. Some mild distress, ill-appearing male. CV: S1, S2. Regular rate and rhythm. Peripheral pulses present. Respiratory: Moving air well bilaterally. No wheezing. Gastrointestinal: Abdomen is soft, nontender, nondistended. Positive bowel sounds. Extremities: No clubbing, cyanosis, edema. Neurologic: Nonfocal. Skin: Perirectal wound clean, dry, intact with decreased level of erythema and induration. Packing in place. Laboratory Data: Sodium 137, potassium 3.6, chloride 103, CO2 26, BUN 11, creatinine 0.68, glucose 1 80, calcium 7, magnesium 2.3. Lactate 0.9. WBC 24.5, H and H 13.5 and 39.7, platelets 192, neutroph ils 84%. Blood cultures, no growth to date. Wound culture shows gram-positive cocci in pairs and ch ains, however, no growth to date. Second wound cultures are growing gram-negative rods as well as gr am-positive cocci in pairs and chains. Bladder ultrasound shows urinary volume of 600 mL. Assessment And Plan: A 38-year-old male with: 1.Perirectal abscess status post incision and drainage. Cultures; pending. Preliminary cultures fr om the wound are growing gram-negative rods and gram-positive cocci. We will continue with broad-spe ctrum IV antibiotics. ID and sensitivity pending. White count trending up currently at 24,000. [place] is normal. The patient has some low-grade fevers. Still having some pain. Spoke with Dr. Analy carranza who reassessed the wound and does not think the patient needs to go back to the OR, however, stat es that there is most likely a fistula as the patient seems to be having some fecal material in the w ound. The patient will likely need colorectal surgery definitely as an outpatient and if does not im prove, perhaps as inpatient requiring transfer to higher level of care. For now, we will continue to monitor. 2.Pseudohypocalcemia. Corrected calcium, is normal. 3.Severe protein-calorie malnutrition. Albumin is 2. 4.Diabetes mellitus type 2, non-insulin requiring with hyperglycemia, uncontrolled. Hemoglobin A1c is greater than 11%. Lantus has been started at breakfast. Sliding scale insulin adjusted. Blood g lucose levels are slightly more improved today. We will continue to monitor. 5.Overweight, BMI 28.2. 6.Bladder distention with polyuria. I spoke with Dr. Alarcon who reassessed the CT scan, did not show any significant prostate enlargement. The patient may have a neurogenic bladder from his diabetes. We will place a Vasquez catheter for now and reassess and give voiding trial. Plan: DVT prophylaxis addressed. Continue antibiotics. Follow up on cultures. We will adjust IV f luids. We will continue IV fluids for now. Continue wound care. /KAYLEN Voice ID: [id number] Report ID: [id number]
[2019-02-07] MEDS: HYDROCODONE/APAP 7.5/325 MG TAB PO PRN ×3 (01:31→17:56)
[2019-02-07] MEDS: PIPER/TAZO/NS 3.375gm 3.375 GM/100 ML BAG IVPB SCH ×3 (01:32→17:23)
[2019-02-07] MEDS: NA CHLORIDE 0.9% 1,000 ML IV SCH ×3 (04:31→17:39)
[2019-02-07] MEDS: HYDROMORPHONE HCL 1 MG/ML INJ IV PRN ×4 (05:57→20:53)
[2019-02-07] MEDS: VANCOMYCIN 2 GM in NA CHLORIDE 0.9% 500 ML IVPB SCH ×2 (05:57→17:23)
[2019-02-07 06:31] LABS: Absolute Monocytes 2.4 K/uL (0.1-1.3); Absolute Neutrophil 17.3 K/uL (1.8-8.0); Basophils % 0.5 % (0-1.3); Eosinophils % 0.4 % (0-4.4); Hematocrit 40.8 % (39.6-49.0); MPV 9.7 fL (7.6-11.3); Monocytes % 11.1 % (3.3-12.3); RBC Red Blood Cell Count 4.69 M/uL (4.33-5.43)
[2019-02-07 06:52] LABS: ALT/SGPT 54 U/L (12-78); AST/SGOT 46 U/L (15-37); Albumin 1.7 g/dL (3.4-5.0); Alkaline Phosphatase 125 U/L (45-117); BUN Blood Urea Nitrogen 7 mg/dL (7-18); Bicarbonate 26 mmol/L (21-32); Bilirubin Total 0.5 mg/dL (0.2-1.0); Glucose Level 151 mg/dL (74-106); Potassium 3.5 mmol/L (3.5-5.1); Protein, Total 5.3 g/dL (6.4-8.2); Sodium Level 137 mmol/L (136-145)
[2019-02-07] MEDS: INSULIN -REGULAR HUMAN 50 UNIT/0.5 ML ML SQ SCH ×4 (07:30→20:52)
[2019-02-07] MEDS ORDERED: POTASSIUM CL SA 10 MEQ TAB PO ONE (07:42)
[2019-02-07] MEDS: INSULIN GLARGINE 100 UNITS/ML SQ SCH (08:27)
[2019-02-07] MEDS: MUPIROCIN 2% OINT 22GM TUBE TOP SCH ×2 (08:28→20:54)
--- NOTE | 2019-02-07 17:15 | PN ---
Date of Progress Note: 02/07/2019 Subjective: The patient is awake and alert, complaining of pain in the wound area. Objective: Vital signs: Stable. Afebrile. Laboratory Data: White count is down to 21,000. Lactic acid is normal. Examination wound reveals decreased erythema, edema, and induration. However, there is still purulen ce in the wound. This was evacuated and the wounds were irrigated. A wet-to-dry normal saline dress ing change was applied. Assessment: Status post incision and debridement of left perirectal abscess. Recommendations: Continue IV antibiotics. Wound care is ordered. We will change dressing twice a d ay. If his white count not improve over the next 24 hours to below 20,000, may benefit from getting a CT of the abdomen and pelvis to make sure that there is not a deeper collection that we are not add ressing. Plan of care discussed in detail with the patient as well as Dr. David. LAURA/KAYLEN Voice ID: [id number] Report ID: [id number]
[2019-02-07] MEDS ORDERED: HYDROMORPHONE HCL 1 MG/ML INJ IV ONE (20:51)
--- NOTE | 2019-02-07 22:07 | PN ---
Date of Progress Note: 02/07/2019 History: The patient seen and examined. Chart reviewed and case discussed with RN and Dr. Noguera. T he patient still having significant amount of pus from his wounds. Dressing changes have been increa sed to twice a day. The patient does appear to have neurogenic bladder, had to be catheterized due t o 600 mL of urine in the bladder. Medications: List reviewed. Physical Examination: Vital Signs: Temperature 99.6, heart rate 82, blood pressure 147/78, respirations 18, O2 96% on room air. General: Awake alert oriented x3. Some mild distress. Ill-appearing male. CV: S1, S2. No murmurs. Peripheral pulses present. Respiratory: Moving air well bilaterally. No wheezing or stridor. Gastrointestinal: Abdomen is soft, nontender, nondistended. Positive bowel sounds. Extremities: No clubbing, cyanosis, or edema. Neurologic: Nonfocal. Skin: Gluteal wound with packing with pustular drainage present. Laboratory Data: Sodium 137, potassium 3.5, chloride 103, CO2 26, BUN 7, creatinine 0.59, glucose 15 1, calcium 7.3, albumin 1.7. WBC 21.9, H and H 13.8 and 40.8, platelets 230, neutrophils 79%. Blood cultures, no growth to date. Wound culture growing out gram-negative rods and gram positive cocci i n pairs and chains. ID and sensitivity pending. Assessment And Plan: A 38-year-old male with: 1.Perirectal abscess status post incision and drainage. Culture showing gram-negative rods and gram -positive cocci. We will continue broad-spectrum IV antibiotics. We will switch over to meropenem. White count is still elevated at 21,000. Lactate is normal. The patient is not septic. The patien t is having some low-grade fevers 99.6. Blood cultures negative to date. Dressing changes adjusted. Appreciate Dr. Noguera's input. We will repeat CT scan in a.m. to assess for any further pockets of loculation or abscess, and need for further surgical intervention. 2.Severe protein-calorie malnutrition. Albumin is 1.7. 3.Diabetes mellitus type 2, non-insulin requiring, with hyperglycemia, uncontrolled. Blood glucose improved, sliding scale adjusted. We will continue to monitor. 4.Bladder distention with likely neurogenic bladder. We will continue with Vasquez catheter placement . Plan: Adjust antibiotics. Repeat CT scan in a.m. Continue to monitor for signs of sepsis. SA/MODL Voice ID: [id number] Report ID: [id number]
[2019-02-08] MEDS: HYDROCODONE/APAP 7.5/325 MG TAB PO PRN ×2 (00:01→18:56)
[2019-02-08] MEDS: NA CHLORIDE 0.9% 1,000 ML IV SCH ×3 (03:55→20:40)
[2019-02-08] MEDS: HYDROMORPHONE HCL 1 MG/ML INJ IV PRN ×4 (03:55→20:39)
[2019-02-08 05:00] LABS: Absolute Lymphocytes (CBC) 2.1 K/uL (0.7-4.9); Absolute Monocytes 2.9 K/uL (0.1-1.3); Absolute Neutrophil 17.5 K/uL (1.8-8.0); Basophils % 0.6 % (0-1.3); Hematocrit 40.1 % (39.6-49.0); Lymphocytes % 9.1 % (15.3-44.8); MPV 8.6 fL (7.6-11.3); Monocytes % 12.5 % (3.3-12.3); RBC Red Blood Cell Count 4.58 M/uL (4.33-5.43)
[2019-02-08 05:22] LABS: ALT/SGPT 60 U/L (12-78); AST/SGOT 34 U/L (15-37); Alkaline Phosphatase 116 U/L (45-117); BUN Blood Urea Nitrogen 7 mg/dL (7-18); Bicarbonate 27 mmol/L (21-32); Bilirubin Total 0.6 mg/dL (0.2-1.0); Glucose Level 141 mg/dL (74-106); Potassium 3.6 mmol/L (3.5-5.1); Sodium Level 139 mmol/L (136-145)
[2019-02-08 05:23] LABS: Albumin 1.8 g/dL (3.4-5.0); Protein, Total 5.4 g/dL (6.4-8.2)
[2019-02-08] MEDS ORDERED: POTASSIUM CL SA 10 MEQ TAB PO ONE (05:47)
[2019-02-08] MEDS: VANCOMYCIN 2 GM in NA CHLORIDE 0.9% 500 ML IVPB SCH (06:29)
[2019-02-08] MEDS: INSULIN -REGULAR HUMAN 50 UNIT/0.5 ML ML SQ SCH ×4 (07:30→20:34)
[2019-02-08] MEDS: MUPIROCIN 2% OINT 22GM TUBE TOP SCH ×2 (09:00→20:37)
[2019-02-08] MEDS: INSULIN GLARGINE 100 UNITS/ML SQ SCH (09:07)
--- NOTE | 2019-02-08 12:58 | PN ---
Date of Progress Note: 02/08/2019 Subjective: The patient is awake, alert, no complaints, currently. He says that when he is sitting still or lying down he has no problem. His vital signs are stable. He is afebrile. Laboratory Data: Shows a white count of 22.8, which is not significantly changed from yesterday. He does still have a left shift. Chemistry reviewed. His cultures did not grow any significant bacter ia. His dressing this morning is clean. Assessment: Status post incision and drainage of left perirectal abscess. Recommendations: As the patient's white count is not improving, I will discuss the case with Dr. Geni boyce. We will go ahead and repeat the CAT scan of the abdomen and pelvis and should there be a collect ion that needs further debridement, we will schedule him for tomorrow. We will make further recommen dation after CAT scan is done. In the meantime, continue antibiotics and wound care as ordered. LAURA/KAYLEN Voice ID: [id number] Report ID: [id number]
--- NOTE | 2019-02-08 13:40 | PN ---
Date of Progress Note: 02/08/2019 Subjective: The patient seen and examined. Chart reviewed and case discussed with RN and Dr. Noguera. The patient still has an elevated white count, has not spiked a temperature, does have some low-grade fevers of 99.9, not hypotensive or tachycardic, does not appear to be developing sepsis. The patient wanting Vasquez catheter out. He understands that he likely has a neurogenic bladder and will need to have bladder scan and possibly straight cath if not urinating adequate volumes. Medications: List reviewed. Physical Examination: Vital Signs: Temperature 98.9, heart rate 74, blood pressure 143/73, respirations 18, O2 97% on room air. General: Awake, alert, oriented x3, in some mild distress, ill-appearing male. CV: S1, S2. Regular rate and rhythm. Peripheral pulses present. Respiratory: Moving air well bilaterally. No wheezing or stridor. Gastrointestinal: Abdomen is soft, nontender, nondistended. Positive bowel sounds. Extremities: No clubbing, cyanosis, or edema. Neurologic: Nonfocal. Skin: Rectal abscess wound is soaked with some drainage, however, no bloody oozing. Laboratory Data: Sodium 139, potassium 3.6, chloride 104, CO2 27, BUN 7, creatinine 0.65, glucose 141, calcium 7.2, albumin 1.8. WBC 22.8, H and H 13.7/ 40.1, platelets 238, neutrophils 76%. Blood cultures, no growth to date. Wound cultures pending, shows gram-positive cocci and gram-negative rods, no ID or sensitivity. Abdomen and pelvis CT scan is pending. Assessment: A 38-year-old male with: 1. Perirectal abscess, status post I and D. Wound cultures growing gram- negative rods and gram-positive cocci. IV antibiotics have been adjusted. The patient's white count trending up to 22.8 with left shift. No signs of sepsis as of right now, however, suspicion is for worsening wound with possible abscess collection. We will repeat CT scan of the abdomen. Spoke with Dr. Noguera, who recommends taking the patient back to the OR in a.m. Especially if CT scan is positive, the patient may have a fistula present. 2. Severe protein-calorie malnutrition. Albumin 1.7. 3. Diabetes mellitus type 2, non-insulin requiring with hyperglycemia, uncontrolled. Sliding scale insulin has been adjusted. The patient has been added on long-acting insulin. We will continue to monitor. 4. Bladder distention with likely neurogenic bladder. We will discontinue Vasquez catheter. Monitor urine volume and may need to bladder scan and straight cath. Plan: Continue meropenem and add IV vancomycin. Follow up on CT scan abdomen. Possible procedure in a.m. /KAYLEN Voice ID: [id number] Report ID: [id number] [facility]
--- NOTE | 2019-02-08 13:52 | RAD REPORT ---
EXAM DESCRIPTION: CT - Abdomen Pelvis W Contrast - 02/08/2019 1:01 pm CLINICAL HISTORY: Abdominal pain COMPARISON: February 03, 2019 TECHNIQUE: Computed axial tomography of the abdomen pelvis was obtained. 100 cc Isovue-300 was admin istered intravenously. Oral contrast was given All CT scans are performed using dose optimization technique as appropriate and may include automated exposure control or mA/KV adjustment according to patient size. FINDINGS: Small left pleural effusion with mild left lower lobe atelectasis The liver, spleen, pancreas, adrenal and kidneys appear unremarkable. There is no evidence of diverticulitis. The appendix is normal Air is present within the left perineum, left perirectal fat and left ischial rectal fossa. An ill-de fined fluid collection containing air measuring 2.5 x 0.9 millimeters is present within the left isch ial rectal fossa. Additional ill-defined fluid is seen within the posterior left perineum. IMPRESSION: 2.5 x 0.9 millimeter ill-defined fluid collection containing air probably representing a bscess. Additional air and small amount of ill-defined fluid is seen within the left perineum, left p erirectal and left ischial rectal fossa which may represent additional infection or a combination of infection and postsurgical change.
[2019-02-08] MEDS ORDERED: HYDROMORPHONE HCL 1 MG/ML INJ IV ONE (14:43)
[2019-02-08] MEDS: PIPER/TAZO/NS 3.375gm 3.375 GM/100 ML BAG IVPB SCH ×3 (14:45→16:21)
[2019-02-08] MEDS: VANCOMYCIN 2.25 GM in NA CHLORIDE 0.9% 500 ML IVPB SCH (17:00)
[2019-02-09] MEDS: PIPER/TAZO/NS 3.375gm 3.375 GM/100 ML BAG IVPB SCH ×3 (00:25→16:46)
[2019-02-09] MEDS: HYDROCODONE/APAP 7.5/325 MG TAB PO PRN ×2 (00:30→13:42)
[2019-02-09] MEDS: HYDROMORPHONE HCL 1 MG/ML INJ IV PRN ×3 (04:14→21:11)
[2019-02-09] MEDS: VANCOMYCIN 2.25 GM in NA CHLORIDE 0.9% 500 ML IVPB SCH ×2 (04:15→16:45)
[2019-02-09] MEDS ORDERED: HYDROMORPHONE HCL 1 MG/ML INJ IV ONE (05:06)
[2019-02-09 05:11] LABS: Absolute Monocytes 2.3 K/uL (0.1-1.3); Absolute Neutrophil 15.5 K/uL (1.8-8.0); Eosinophils % 1.1 % (0-4.4); Hematocrit 41.3 % (39.6-49.0); Monocytes % 11.4 % (3.3-12.3); RBC Red Blood Cell Count 4.72 M/uL (4.33-5.43)
[2019-02-09 05:31] LABS: BUN Blood Urea Nitrogen 5 mg/dL (7-18); Bicarbonate 27 mmol/L (21-32); Glucose Level 165 mg/dL (74-106); Potassium 3.5 mmol/L (3.5-5.1); Sodium Level 140 mmol/L (136-145)
[2019-02-09] MEDS: INSULIN -REGULAR HUMAN 50 UNIT/0.5 ML ML SQ SCH ×4 (07:30→21:12)
[2019-02-09] MEDS: MUPIROCIN 2% OINT 22GM TUBE TOP SCH ×2 (08:21→21:00)
[2019-02-09] MEDS ORDERED: BUPIVACAINE 0.5% PF 10 ML VIAL ONE (09:01)
[2019-02-09] MEDS ORDERED: PROPOFOL 200 MG/20 ML VIAL IV ONE (09:13)
[2019-02-09] MEDS ORDERED: FENTANYL CITR 100 MCG/2 ML ONE ×3 (09:14→09:42)
[2019-02-09] MEDS ORDERED: LIDOCAINE 2% MPF 5 ML VIAL ONE (09:14)
[2019-02-09] MEDS ORDERED: DEXAMETHASONE 10 MG/ML VIAL ONE (09:28)
[2019-02-09] MEDS ORDERED: ONDANSETRON 4 MG/2 ML VIAL ONE (09:38)
--- NOTE | 2019-02-09 09:39 | P.OP ---
Preoperative diagnosis: Left Antonina-Rectal Abscess Postoperative diagnosis: same Primary procedure: EUA, I and D and Debridement Left Antonina-Rectal Abscess Anesthesia: gen Estimated blood loss: min Specimen: pus Findings: as above Complications: None Transferred to: Recovery Room Condition: Good
[2019-02-09] MEDS: HYDROMORPHONE HCL 1 MG/ML INJ ONE ×4 (09:55→10:29)
[2019-02-09] MEDS ORDERED: KETOROLAC 30 MG/ML INJ ONE (09:56)
[2019-02-09] MEDS ORDERED: NA CHLORIDE 0.9% 1,000 ML ONE (09:58)
[2019-02-09] MEDS: NA CHLORIDE 0.9% 1,000 ML IV SCH ×2 (11:15→21:12)
[2019-02-09] MEDS: INSULIN GLARGINE 100 UNITS/ML SQ SCH (11:16)
[2019-02-09] MEDS ORDERED: POTASSIUM 25 MEQ EFFERV TAB PO ONE (12:00)
--- NOTE | 2019-02-09 14:27 | PN ---
Date of Progress Note: 02/09/2019 History Of Present Illness: Patient seen and examined. Chart reviewed and case discussed with RN. The patient went for repeat I and D today by Dr. Noguera. The patient does report some pain. Medications: List reviewed. Physical Examination: Vital Signs: Temperature 98.6, heart rate 77, blood pressure 138/70, respirations 16, O2 98% on room air. General: Awake, alert, oriented x3, in some mild distress, ill-appearing male. CV: S1, S2. Regular rate and rhythm. Peripheral pulses present. Respiratory: Moving air well bilaterally. No wheezing or stridor. Gastrointestinal: Abdomen is soft, nontender, nondistended. Positive bowel sounds. Extremities: No clubbing, cyanosis, or edema. Neurologic: Nonfocal. Skin: Incision site bandaged; clean, dry, intact. Laboratory Data: Sodium 140, potassium 3.5, chloride 104, CO2 27, BUN 5, creatinine 0.58, glucose 16 5, calcium 7.5. WBC 20.2, H and H 14/41.3, platelets 306, neutrophils 76%. Cultures no growth to da te. Wound cultures pending. Assessment And Plan: A 38-year-old male with: 1.Perirectal abscess status post repeat I and D of the left perirectal abscess. The patient underwe nt exam under anesthesia and I and D today by Dr. Noguera. The patient still has elevated white count; has been spiking low-grade fevers. Blood cultures have been negative; however, wound cultures are s till pending. We will continue with wound care. 2.Severe protein-calorie malnutrition. Albumin is 1.7. Diet supplementation. 3.Diabetes mellitus type 2, ogk-zzhzmwz-jtslluqvi, with hyperglycemia, uncontrolled. We will contin ue sliding scale insulin and long-acting insulin has been initiated. 4.Bladder distention. The patient likely has neurogenic bladder. We will need to follow with Urolo gy as outpatient. Plan: Continue IV antibiotics. Follow up on cultures and continue wound care. /KAYLEN Voice ID: [id number] Report ID: [id number]
--- NOTE | 2019-02-09 19:39 | OP ---
Date of Procedure: 02/09/2019 Surgeon: Saeid Noguera MD Preoperative Diagnosis: Left perirectal abscess. Postoperative Diagnosis: Left perirectal abscess. Procedure: Incision, drainage, and debridement of left perirectal abscess. Estimated Blood Loss: Minimal. Specimen: Pus. Findings: As above. Anesthesia: General. Complications: None. Disposition: The patient tolerated the procedure well in stable condition, taken to Recovery in good general condition. Procedure In Detail: The patient was brought to the OR, placed in supine position. General anesthes ia was begun. The patient was placed in lithotomy position, prepped and draped in usual sterile fash ion. Marcaine 0.5% was infiltrated locally. The findings of the CAT scan were discussed in detail p rior to the surgery with Dr. Alarcon. The patient had 2 separate collections that were of concern, one at the 1-2 o'clock position and the other one at 5-6 o'clock position. The previous incision was ext ended superiorly and inferiorly. There was a flap of skin, which was excised, and then deep dissecti on proceeded to find deep pockets in both those areas and they were evacuated. Loculations were brok en up. Necrotic tissue was debrided. Cultures were done again. The wound was irrigated. Bleeding controlled with cautery and then wet-to-dry normal saline dressing change was applied. The patient tolerated the procedure in stable condition, was taken to Recovery i n good general condition. /MODL Voice ID: [id number] Report ID: [id number]
[2019-02-10] MEDS: HYDROCODONE/APAP 7.5/325 MG TAB PO PRN ×2 (00:38→11:26)
[2019-02-10] MEDS: PIPER/TAZO/NS 3.375gm 3.375 GM/100 ML BAG IVPB SCH ×3 (00:38→16:15)
[2019-02-10] MEDS: HYDROMORPHONE HCL 1 MG/ML INJ IV PRN ×6 (02:05→23:49)
[2019-02-10 04:43] LABS: Absolute Lymphocytes (CBC) 2.1 K/uL (0.7-4.9); Absolute Monocytes 2.3 K/uL (0.1-1.3); Absolute Neutrophil 20.8 K/uL (1.8-8.0); Basophils % 0.4 % (0-1.3); Hematocrit 41.5 % (39.6-49.0); Lymphocytes % 8.4 % (15.3-44.8); MPV 8.9 fL (7.6-11.3); RBC Red Blood Cell Count 4.74 M/uL (4.33-5.43)
[2019-02-10 05:15] LABS: BUN Blood Urea Nitrogen 10 mg/dL (7-18); Bicarbonate 26 mmol/L (21-32); Glucose Level 262 mg/dL (74-106); Sodium Level 137 mmol/L (136-145)
[2019-02-10] MEDS: VANCOMYCIN 2.25 GM in NA CHLORIDE 0.9% 500 ML IVPB SCH (06:34)
[2019-02-10] MEDS: INSULIN -REGULAR HUMAN 50 UNIT/0.5 ML ML SQ SCH ×4 (07:30→21:40)
[2019-02-10 08:36] LABS: Platelet Estimate ADEQ
[2019-02-10 08:37] LABS: Blood Morphology Comment NOT SEEN (NOT SEEN)
[2019-02-10] MEDS: MUPIROCIN 2% OINT 22GM TUBE TOP SCH ×2 (09:00→21:00)
[2019-02-10] MEDS ORDERED: MORPHINE 2 MG/ML SYR IV ONE (09:19)
[2019-02-10] MEDS ORDERED: MORPHINE 2 MG/ML SYR IV PRN (09:35)
[2019-02-10] MEDS: NA CHLORIDE 0.9% 1,000 ML IV SCH ×2 (09:41→17:13)
[2019-02-10] MEDS: INSULIN GLARGINE 100 UNITS/ML SQ SCH (09:42)
--- NOTE | 2019-02-10 16:01 | PN ---
Date of Progress Note: 02/10/2019 Subjective: The patient is awake, alert, feels much better than yesterday before surgery. Objective: Vital Signs: Stable, afebrile. Cultures from the recent surgery are pending. Gram-negative tho is seen in the Gram stain. Examinat ion of the wound reveals no active purulence. No evidence of bleeding. Assessment: Status post incision and drainage debridement of a deep perirectal abscess. Recommendations: Continue IV antibiotics and wound care as ordered. Please note, the white count is elevated, it will be today and hopefully it will start going down. Once it gets down below 15,000 a nd wound is clean and cultures reveal, then patient can be discharged home, hopefully in 24 to 48 prema rs. SANCHEZ/KAYLEN Voice ID: [id number] Report ID: [id number]
[2019-02-10] MEDS: LIDOCAINE VISCOUS 2% SOLN 15 ML UDC TOP PRN (16:15)
[2019-02-10] MEDS ORDERED: BISACODYL 10 MG RECTAL SUPP PR PRN (16:25)
[2019-02-10] MEDS: VANCOMYCIN 2.5 GM in NA CHLORIDE 0.9% 500 ML IVPB SCH (17:13)
--- NOTE | 2019-02-10 18:22 | PN ---
Date of Progress Note: 02/10/2019 Subjective: The patient seen and examined, chart reviewed and case discussed with RN and Dr. Noguera. he patient states he feels significantly better after the repeat surgery. His pain has improved, ho wever, requesting something for pain during packing changing. Medications: List reviewed. Objective: Vital Signs: Temperature 98.1, heart rate 71, blood pressure 139/76, respirations 18, O2 97% on room air. General: Awake, alert oriented x3, ill-appearing male, in some mild distress. CV: S1, S2. Regular rate and rhythm. Peripheral pulses present. Respiratory: moving air well bilaterally. No wheezing or stridor. Gastrointestinal: Abdomen is soft, nontender, nondistended. Positive bowel sounds. Extremities: No clubbing, cyanosis, or edema. Neurologic: Nonfocal. Skin: Right gluteal wound with packing in place. No induration felt. Laboratory Data: Sodium 137, potassium 4, chloride 103, CO2 26, BUN 10, creatinine 0.68, glucose 262 , calcium 7.6. WBC 25.4, H and H 14.1 and 41.5, platelets 383, neutrophils 82%, 3% bands. Blood cul tures no growth. Final repeat wound cultures pending, so far growing 2+ gram-negative rods. Previou s wound culture growing presumptive Bacteroides fragilis group, beta lactamase positive; anaerobic, g keny-negative rods. Assessment: A 38-year-old male with: 1.Perirectal abscess, status post repeat incision and drainage of the abscess, underwent exam under anesthesia and repeat incision and drainage has improved white count however still trending up with b andemia, likely reactive to the surgery. We will send off peripheral blood smear to rule out other c auses of persistent white count elevation, however, with his significant infection, poor hygiene, pos sibility of fistula and improvement with repeat incision and drainage. Clinically, would suspect twyla t this is due to infectious process. Wound cultures growing Bacteroides. Repeat cultures are pendin g. Continue broad-spectrum IV antibiotics. 2.Severe protein-calorie malnutrition. Albumin 1.7. We will continue protein supplementation. 3.Diabetes mellitus type 2 grd-xotjubi-zxbrimsoz with hyperglycemia, not well controlled. Insulin d ose has been adjusted. We will monitor Accu-Cheks. 4.Bladder distention, likely a neurogenic bladder. Consult Urology once available or as outpatient. 5.Deep vein thrombosis prophylaxis, addressed. Plan: The patient will need significant wound care as outpatient, may need to be set up with home he alth or other. May benefit from [facility] facility or even LTAC for wound care and diabetes ma nagement and antibiotics. We will continue to monitor. /KAYLEN Voice ID: [id number] Report ID: [id number]
[2019-02-10] MEDS ORDERED: TAMSULOSIN 0.4 MG SR CAP PO SCH (21:00)
[2019-02-10] MEDS: DOCUSATE NA 100 MG CAP PO SCH (21:39)
[2019-02-11 01:03] VITALS: O2SAT 97
[2019-02-11] MEDS: NA CHLORIDE 0.9% 1,000 ML IV SCH (01:45)
[2019-02-11] MEDS: PIPER/TAZO/NS 3.375gm 3.375 GM/100 ML BAG IVPB SCH (01:48)
[2019-02-11 04:31] LABS: Absolute Lymphocytes (CBC) 2.7 K/uL (0.7-4.9); Absolute Monocytes 1.1 K/uL (0.1-1.3); Absolute Neutrophil 10.8 K/uL (1.8-8.0); Basophils % 1.5 % (0-1.3); Eosinophils % 0.9 % (0-4.4); Hematocrit 37.3 % (39.6-49.0); Lymphocytes % 17.9 % (15.3-44.8); MPV 8.2 fL (7.6-11.3); Monocytes % 7.2 % (3.3-12.3); RBC Red Blood Cell Count 4.21 M/uL (4.33-5.43)
[2019-02-11 04:43] LABS: ALT/SGPT 46 U/L (12-78); AST/SGOT 20 U/L (15-37); Albumin 1.7 g/dL (3.4-5.0); Alkaline Phosphatase 92 U/L (45-117); BUN Blood Urea Nitrogen 11 mg/dL (7-18); Bicarbonate 26 mmol/L (21-32); Bilirubin Total 0.4 mg/dL (0.2-1.0); Glucose Level 209 mg/dL (74-106); Potassium 3.6 mmol/L (3.5-5.1); Protein, Total 5.6 g/dL (6.4-8.2); Sodium Level 141 mmol/L (136-145)
[2019-02-11] MEDS: HYDROMORPHONE HCL 1 MG/ML INJ IV PRN (04:54)
[2019-02-11] MEDS: VANCOMYCIN 2.5 GM in NA CHLORIDE 0.9% 500 ML IVPB SCH (04:54)
[2019-02-11] MEDS: MUPIROCIN 2% OINT 22GM TUBE TOP SCH ×2 (09:00→20:02)
[2019-02-11] MEDS ORDERED: POTASSIUM 25 MEQ EFFERV TAB PO ONE (09:00)
[2019-02-11] MEDS: INSULIN -REGULAR HUMAN 50 UNIT/0.5 ML ML SQ SCH ×4 (09:28→21:00)
[2019-02-11] MEDS: DOCUSATE NA 100 MG CAP PO SCH ×2 (09:29→20:01)
[2019-02-11] MEDS: POLYETHYL GLY 3350 17 GM/DOSE PO SCH (09:29)
[2019-02-11] MEDS: SMZ./TMP. 800/160 MG TABLET PO SCH ×2 (09:29→20:01)
[2019-02-11] MEDS: INSULIN GLARGINE 100 UNITS/ML SQ SCH (09:32)
[2019-02-11] MEDS: HYDROCODONE/APAP 7.5/325 MG TAB PO PRN ×3 (09:37→22:51)
--- NOTE | 2019-02-11 11:15 | P.PN ---
Subjective Date of Service: 02/11/19 Chief Complaint: sepsis, perirectal abscess Patient seen and examined at bedside with RN. Chart reviewed. Case discussed with general surgery. Overnight no complaints to offer at this time. Doing well overall Review of Systems 10-point ROS is otherwise unremarkable Physical Examination - Vital Signs Temperature: 97.6 F Blood Pressure: 140/76 Pulse: 59 Respirations: 18 Pulse Ox (%): 97 - Physical Exam General: Alert, In no apparent distress HEENT: Atraumatic, PERRLA, EOMI Neck: Supple, JVD not distended Respiratory: Clear to auscultation bilaterally, Normal air movement Cardiovascular: Regular rate/rhythm, Normal S1 S2 Gastrointestinal: Normal bowel sounds, No tenderness Musculoskeletal: No tenderness Integumentary: Other (Perirectal wound clean dry and intact. Currently with packing. Minimal drainage noted) Neurological: Normal speech, Normal tone, Normal affect Lymphatics: No axilla or inguinal lymphadenopathy - Studies Medications List Reviewed: Yes Assessment And Plan - Current Problems (Diagnosis) (1) Perirectal abscess Onset Date: 11/08/17 Current Visit: No Status: Acute Plan: Perirectal abscess secondary to poorly-controlled diabetes -status post repeat incision and drainage of the abscess x 2 with General Surgery -currently on IV Zosyn and vancomycin at this time. -wound culture positive for E. coli sensitive to Bactrim will switch to oral antibiotics today -will continue with wound care here in the hospital -appreciated General surgery's recommendations at this time (2) Poorly controlled diabetes mellitus Onset Date: 11/08/17 Current Visit: No Status: Chronic - Plan Pending clinical improvement at this time. Will switch the patient to oral antibiotics today will monitor for next 24-48 hr for improvement. Patient can be discharged home with home health for wound care Discharge Plan: Other Plan to discharge in: Greater than 2 days - Code Status/Comfort Care Code Status Assessed: Yes Critical Care: No
--- NOTE | 2019-02-11 12:16 | PN ---
Date of Progress Note: 02/11/2019 Subjective: The patient with no complaints, feels better . Objective: Vital signs stable, afebrile. Cultures are growing E. coli. Sensitive to Bactrim and Cipro. White count is down to 15,000. Dress ing is clean and dry. Assessment: Status post incision and drainage perirectal abscess. Recommendations: Continue antibiotics. We will arrange for home health for dressing changes and pro bably the patient could be discharged home tomorrow and follow up with me in the [facility] . LAURA/KAYLEN Voice ID: [id number] Report ID: [id number]
[2019-02-11] MEDS: LIDOCAINE VISCOUS 2% SOLN 15 ML UDC TOP PRN (15:26)
[2019-02-11] MEDS: LIDOCAINE 4% TOP SOLUTION TOP PRN (17:32)
[2019-02-12 04:25] LABS: Absolute Lymphocytes (CBC) 2.5 K/uL (0.7-4.9); Absolute Monocytes 1.3 K/uL (0.1-1.3); Absolute Neutrophil 10.5 K/uL (1.8-8.0); Basophils % 0.5 % (0-1.3); Eosinophils % 1.1 % (0-4.4); Hematocrit 39.7 % (39.6-49.0); Lymphocytes % 17.2 % (15.3-44.8); MPV 8.3 fL (7.6-11.3); RBC Red Blood Cell Count 4.52 M/uL (4.33-5.43)
[2019-02-12 04:37] LABS: BUN Blood Urea Nitrogen 9 mg/dL (7-18); Bicarbonate 29 mmol/L (21-32); Glucose Level 222 mg/dL (74-106); Potassium 3.9 mmol/L (3.5-5.1); Sodium Level 140 mmol/L (136-145)
[2019-02-12] MEDS: HYDROCODONE/APAP 7.5/325 MG TAB PO PRN ×3 (04:55→16:48)
[2019-02-12] MEDS ORDERED: POTASSIUM CL SA 10 MEQ TAB PO ONE (08:00)
[2019-02-12] MEDS: INSULIN -REGULAR HUMAN 50 UNIT/0.5 ML ML SQ SCH ×3 (08:30→17:00)
[2019-02-12] MEDS: SMZ./TMP. 800/160 MG TABLET PO SCH (08:45)
[2019-02-12] MEDS: DOCUSATE NA 100 MG CAP PO SCH (08:46)
[2019-02-12] MEDS: POLYETHYL GLY 3350 17 GM/DOSE PO SCH (08:46)
[2019-02-12] MEDS: MUPIROCIN 2% OINT 22GM TUBE TOP SCH (08:47)
[2019-02-12] MEDS: INSULIN GLARGINE 100 UNITS/ML SQ SCH (08:56)
[2019-02-12] MEDS: LIDOCAINE 4% TOP SOLUTION TOP PRN (10:48)
--- NOTE | 2019-02-12 11:56 | P.DS ---
Admission Date: 02/03/19 Discharge Date: 02/12/19 Disposition: ROUTINE DISCHARGE Discharge Condition: GOOD Reason for Admission: sepsis, perirectal abscess Consultations: General Surgery - Problems (1) Perirectal abscess Onset Date: 11/08/17 Current Visit: No Status: Acute (2) Poorly controlled diabetes mellitus Onset Date: 11/08/17 Current Visit: No Status: Chronic Brief History of Present Illness: Mr Olivas is a 38 years old male with history of DM II, perirectal abscess, who came to ED complaining of progressive pain in his left buttock. He also has had fever at home. The pain is similar to previous episode of perirectal abscess. He denied any drainage. At arrival his temp was 99.5 F, BP 109/84. Lab work shows leukocytosis 35.2K, with bandemia, also elevated lactate and procalcitonin. CT abd/pelvis remarkable for a 24 x 11 mm left prerectal abscess. Hospital Course: Overall during the hospital stay patient remained stable The patient was initially admitted to the hospital for perirectal abscess. General surgery was consulted. Patient had incision and drainage x2 while here in the hospital. Initially patient was started on broad-spectrum antibiotics. Patient did well overall after incision and drainage and wound cultures were collected. Patient was continued on broad-spectrum antibiotics until wound cultures resulted. Wound culture was positive for E. coli which was sensitive to oral Bactrim. At that time patient was switched over to oral Bactrim and had marked improvement in his symptoms, lab work, perirectal abscess. Patient was continued on wound care while here in the hospital. He was wet-to-dry with packing as well. Patient then was discharged home and home health was arranged for wound care. Patient was also given prescription for Bactrim for total 10 days to be taken b.i.d.. Patient was given a prescription for pain medication along with lidocaine jelly. Patient was also asked to continue with Hibiclens for daily showers. Patient was asked to continue monitoring his diabetes closely to avoid future complications. Patient demonstrated understanding and thus was discharged home under stable condition Vital Signs/Physical Exam: Temp Pulse Resp BP Pulse Ox 97.3 F 57 18 142/75 H 97 02/12/19 08:00 02/12/19 08:00 02/12/19 08:00 02/12/19 08:00 02/12/19 08:00 General: Alert, In no apparent distress HEENT: Atraumatic, PERRLA, EOMI Neck: Supple, JVD not distended Respiratory: Clear to auscultation bilaterally, Normal air movement Cardiovascular: Regular rate/rhythm, Normal S1 S2 Gastrointestinal: Normal bowel sounds, No tenderness Musculoskeletal: No tenderness Integumentary: Tenderness/swelling Neurological: Normal speech, Normal tone, Normal affect Lymphatics: No axilla or inguinal lymphadenopathy Laboratory Data at Discharge: WBC 14.5 K/uL (4.3-10.9) H 02/12/19 03:42 Hgb 13.4 g/dL (13.6-17.9) L 02/12/19 03:42 Hct 39.7 % (39.6-49.0) 02/12/19 03:42 Plt Count 408 K/uL (152-406) H 02/12/19 03:42 Sodium 140 mmol/L (136-145) 02/12/19 03:42 Potassium 3.9 mmol/L (3.5-5.1) 02/12/19 03:42 BUN 9 mg/dL (7-18) 02/12/19 03:42 Creatinine 0.76 mg/dL (0.55-1.3) 02/12/19 03:42 Glucose 222 mg/dL (74-106) H 02/12/19 03:42 Magnesium 2.3 mg/dL (1.8-2.4) 02/06/19 04:17 Total Bilirubin 0.4 mg/dL (0.2-1.0) 02/11/19 03:30 AST 20 U/L (15-37) 02/11/19 03:30 ALT 46 U/L (12-78) 02/11/19 03:30 Alkaline Phosphatase 92 U/L (45-117) 02/11/19 03:30 Home Medications: Hydrocodone 7.5/APAP 325 [[place] 7.5/325 mg] 1 tab PO Q4HP PRN #40 tab 02/12/19 LIDOCAINE 2% JELLY, 5mL [Xylocaine 2% Jelly*] 30 ml MM DAILY #1 tube 02/12/19 Smz./Tmp. [Bactrim Ds 800 MG/160 MG*] 1 tab PO BID #20 tab 02/12/19 New Medications: Hydrocodone 7.5/APAP 325 [[place] 7.5/325 mg] 1 tab PO Q4HP PRN #40 tab PRN Reason: Pain Scale 5-7 (Moderate) LIDOCAINE 2% JELLY, 5mL [Xylocaine 2% Jelly*] 30 ml MM DAILY #1 tube Smz./Tmp. [Bactrim Ds 800 MG/160 MG*] 1 tab PO BID #20 tab Diet: Regular Activity: Ad negra Followup: Saeid Noguera MD [ACTIVE - CAN ADMIT] - 1 Week (Follow up in wound healing center , call [phone] to schedule an appointment)
--- NOTE | 2019-02-12 14:14 | PN ---
Date of Progress Note: 02/12/2019 Subjective: The patient is awake, alert. No complaint. Vital signs stable. Afebrile. White count is down to 14,500. There is no left shift anymore. His dressing is clean and dry. Objective: Vital Signs: Stable. He is afebrile. Assessment: Status post incision and drainage of left buttock abscess. Left perirectal abscess. Recommendation: The patient cleared for discharge on oral antibiotics, Bactrim. Wound care is order ed. Follow up in the [facility]. /MODL Voice ID: [id number] Report ID: [id number]
[2019-02-12 17:37] VITALS: BP 107/59; TEMP 96.9
== END 2019-02-12 18:09 | disposition home health service (06) | DRG 853 ==
LOC: ER 14:14 → ERHOLD 21:13 → 4TH 02-04 13:28
PROVIDERS: ADMIT Internal Medicine; ATTEND Family Medicine
PROC: 0JB90ZZ Excision of Buttock Subcutaneous Tissue and Fascia, Open Approach (ICD-10-PCS; principal; 2019-02-04 14:00)
PROC: 0JB90ZZ Excision of Buttock Subcutaneous Tissue and Fascia, Open Approach (ICD-10-PCS; 2019-02-09)
DX: A41.9 Sepsis, unspecified organism (principal); E43 Unspecified severe protein-calorie malnutrition; K61.1 Rectal abscess; E11.8 Type 2 diabetes mellitus with unspecified complications; Z79.84 Long term (current) use of oral hypoglycemic drugs; F17.210 Nicotine dependence, cigarettes, uncomplicated; E11.65 Type 2 diabetes mellitus with hyperglycemia; E66.3 Overweight; Z68.28 Body mass index [BMI] 28.0-28.9, adult; E83.51 Hypocalcemia; R35.8 Other polyuria; N31.9 Neuromuscular dysfunction of bladder, unspecified; B96.20 Unspecified Escherichia coli [E. coli] as the cause of diseases classified elsewhere
CPT/HCPCS: 36415; 74177; 76857; 80048; 80053; 80202; 81003; 81015; 82962; 83036; 83605; 83735; 84145; 85025; 87040; 87070; 87075; 87077; 87185; 87186; 87205; 96365; 96366; 96367; 96375; 97162; 99285; J1100; J1170; J2250; J2270; J2405; J2543; J2704; J3010; J7030; Q9967

== ENCOUNTER 2020-03-14 14:18 | Inpatient (IN) | payer BC, SELFPAY ==
[2020-03-14] MEDS ORDERED: NA CHLORIDE 0.9% 500 ML ONE (15:15)
[2020-03-14 15:22] LABS: Absolute Lymphocytes (CBC) 2.5 K/uL (0.7-4.9); Basophils % 1.2 % (0-1.3); Hematocrit 47.9 % (39.6-49.0); MPV 9.4 fL (7.6-11.3); RBC Red Blood Cell Count 5.51 M/uL (4.33-5.43)
--- NOTE | 2020-03-14 15:24 | RAD REPORT ---
EXAM DESCRIPTION: RAD - Foot Right 3 View - 03/14/2020 3:13 pm CLINICAL HISTORY: Pain;Swelling COMPARISON: No comparisons FINDINGS: Patient detailed a foot ulcer which was not otherwise detailed or localized. No acute fracture changes. No dislocation or periosteal reaction. Focal lucency seen in the tuft of t he first distal phalanx. No cortical disruption. No air in the soft tissues of the first toe. This is likely bone cyst rather than bone destruction. Correlation is needed with any soft tissue wound of t he first toe. There is subtle lucent change involving the base of the fifth proximal phalanx. There is evidence for soft tissue swelling and possible ulceration in this region. This needs clinical correlation. As see n, findings raise concern for early osteomyelitis. No other focal bone or joint abnormality identifiable. No foreign body in the soft tissues. IMPRESSION: Patient gives a history of foot wound of unknown duration. No localization history avail able. Evidence of soft tissue swelling and possible wound present near the fifth MTP joint with subtle bone loss changes in the medial margin fifth proximal phalanx base. Focal lucent changes in the tuft of the first distal phalanx are favored to be noninfectious in etiol ogy. Correlation is needed with the location of the patient wound.
[2020-03-14 15:39] LABS: Albumin 3.5 g/dL (3.4-5.0); Bilirubin Total 0.5 mg/dL (0.2-1.0); Protein, Total 7.9 g/dL (6.4-8.2)
--- NOTE | 2020-03-14 15:48 | EDPHYS ---
Physician Documentation [facility] Name: Kyrie Olivas Age: 39 yrs Sex: Male : 1980 Arrival Date: 03/14/2020 Time: 14:22 Bed 17 Private MD: ED Physician Mino Mata HPI: 03/14 14:42 This 39 yrs old Male presents to ER via Ambulatory with complaints of foot janel ulcer. 14:42 The patient presents with swelling. The complaints affect the right foot, lateral side janel of right foot. Context: The problem was sustained at an unknown location, resulted from an unknown cause, Mechanism of Injury: Unknown the patient can fully bear weight. Onset: The symptoms/episode began/occurred at an unknown time. Modifying factors: The symptoms are alleviated by nothing, the symptoms are aggravated by nothing. Associated signs and symptoms: The patient has no apparent associated signs or symptoms. Severity of symptoms: At their worst the symptoms were moderate, in the emergency department the symptoms are unchanged. The patient has not experienced similar symptoms in the past. Historical: - Allergies: 14:36 Red Dye; ll1 - PMHx: 14:36 Diabetes - NIDDM; ll1 - PSHx: 14:36 Abscess; ll1 - Social history:: Smoking status: Patient reports the use of cigarette tobacco products, smokes one pack cigarettes per day. Patient/guardian denies using alcohol, street drugs. - Family history:: not pertinent. ROS: 14:42 Constitutional: Negative for fever, chills, and weight loss, Eyes: Negative for injury, janel pain, redness, and discharge, ENT: Negative for injury, pain, and discharge, Neck: Negative for injury, pain, and swelling, Cardiovascular: Negative for chest pain, palpitations, and edema, Respiratory: Negative for shortness of breath, cough, wheezing, and pleuritic chest pain, Abdomen/GI: Negative for abdominal pain, nausea, vomiting, diarrhea, and constipation, Back: Negative for injury and pain, : Negative for injury, bleeding, discharge, and swelling, Skin: Negative for injury, rash, and discoloration, Neuro: Negative for headache, weakness, numbness, tingling, and seizure, Psych: Negative for depression, anxiety, suicide ideation, homicidal ideation, and hallucinations, Allergy/Immunology: Negative for hives, rash, and allergies, Endocrine: Negative for neck swelling, polydipsia, polyuria, polyphagia, and marked weight changes, Hematologic/Lymphatic: Negative for swollen nodes, abnormal bleeding, and unusual bruising. 14:42 MS/extremity: Positive for swelling, of the lateral side of right foot. Exam: 14:42 Constitutional: This is a well developed, well nourished patient who is awake, alert, janel and in no acute distress. Head/Face: Normocephalic, atraumatic. Eyes: Pupils equal round and reactive to light, extra-ocular motions intact. Lids and lashes normal. Conjunctiva and sclera are non-icteric and not injected. Cornea within normal limits. Periorbital areas with no swelling, redness, or edema. ENT: Nares patent. No nasal discharge, no septal abnormalities noted. Tympanic membranes are normal and external auditory canals are clear. Oropharynx with no redness, swelling, or masses, exudates, or evidence of obstruction, uvula midline. Mucous membranes moist. Neck: Trachea midline, no thyromegaly or masses palpated, and no cervical lymphadenopathy. Supple, full range of motion without nuchal rigidity, or vertebral point tenderness. No Meningismus. Chest/axilla: Normal chest wall appearance and motion. Nontender with no deformity. No lesions are appreciated. Cardiovascular: Regular rate and rhythm with a normal S1 and S2. No gallops, murmurs, or rubs. Normal PMI, no JVD. No pulse deficits. Respiratory: Lungs have equal breath sounds bilaterally, clear to auscultation and percussion. No rales, rhonchi or wheezes noted. No increased work of breathing, no retractions or nasal flaring. Abdomen/GI: Soft, non-tender, with normal bowel sounds. No distension or tympany. No guarding or rebound. No evidence of tenderness throughout. Back: No spinal tenderness. No costovertebral tenderness. Full range of motion. Male : Normal genitalia with no discharge or lesions. Skin: Warm, dry with normal turgor. Normal color with no rashes, no lesions, and no evidence of cellulitis. Neuro: Awake and alert, GCS 15, oriented to person, place, time, and situation. Cranial nerves II-XII grossly intact. Motor strength 5/5 in all extremities. Sensory grossly intact. Cerebellar exam normal. Normal gait. Psych: Awake, alert, with orientation to person, place and time. Behavior, mood, and affect are within normal limits. 14:42 Musculoskeletal/extremity: ROM: full active range of motion, full passive range of motion, Circulation is intact in all extremities. numbness, Compartment Syndrome exam of affected extremity: is normal. DVT Exam: no pain, no tenderness, negative Homans' sign noted on exam, no appreciated bluish discoloration, no erythema, no increased warmth, swelling. Vital Signs: 14:34 BP 142 / 94; Pulse 90; Resp 17; Temp 98.3; Pulse Ox 98% ; Pain 0/10; ll1 15:30 BP 131 / 86; Pulse 81; Resp 18; Pulse Ox 100% ; vc 16:00 BP 112 / 86; Pulse 79; Resp 17; Pulse Ox 100% ; vc 16:30 BP 118 / 82; Pulse 74; Resp 17; Pulse Ox 100% ; vc 17:11 BP 129 / 86; Pulse 81; Resp 17; Pulse Ox 100% ; ah MDM: 14:29 Patient medically screened. [facility] 14:45 Data reviewed: vital signs, nurses notes, lab test result(s), radiologic studies, plain janel films. 16:04 Differential diagnosis: fracture, foreign body, penetrating trauma, cellulitis. Data [facility] interpreted: monitoring engineer: not applicable for this patient encounter. ED course: spoke with dr hermosillo, cover with zosyn and silvadene and sliding scale.agrees with plan, no changes at this time. 03/14 14:42 Order name: CBC with Diff; Complete Time: 15:44 [facility] 03/14 14:42 Order name: Comprehensive Metabolic Panel; Complete Time: 15:40 [facility] 03/14 14:42 Order name: Sed Rate; Complete Time: 15:44 [facility] 03/14 14:42 Order name: Foot Right 3 View XRAY; Complete Time: 15:32 [facility] 03/14 15:45 Order name: Wound Culture [facility] 03/14 16:47 Order name: Misc. Order: DRESS FOOT,SILVADENE AND COVER; Complete Time: 16:52 [facility] Administered Medications: 15:15 Drug: NS 0.9% 500 ml Route: IV; Rate: bolus; Site: right forearm; 16:53 Follow up: IV Status: Completed infusion; IV Intake: 500ml vc 16:23 Drug: Silver SulfADIAZINE Cream 1 % 1 application {Note: right lateral foot.} Route: ah Topical; Site: wound; 16:23 Drug: Zosyn 3.375 grams Route: IVPB; Infused Over: 60 mins; Site: right antecubital; ah 17:21 Follow up: IV Status: Completed infusion; IV Intake: 100ml vc 17:20 Drug: vancoMYCIN 1 grams Route: IVPB; Infused Over: 2 hrs; Site: right forearm; vc 17:20 Follow up: IV Status: Infusion continued upon admission vc Disposition: 03/14/20 15:47 Hospitalization ordered by Colby Hermosillo for Inpatient Admission. Preliminary diagnosis are Type 2 diabetes mellitus with foot ulcer, Elevated white blood cell count, Cellulitis and acute lymphangitis of other parts of limb - RIGHT FOOT, DORSUM. - Bed requested for Telemetry/MedSurg (Inpatient). - Status is Inpatient Admission. vc - Condition is Stable. - Problem is new. - Symptoms have improved. Signatures: Dispatcher [employer] EDMS Colette Cristina Corey, MD MD cha Calcote, Vanessa RN RN Tresa Rubalcava RN RN ah Lewis, Lynsay, RN RN ll1 Corrections: (The following items were deleted from the chart) 16:24 15:47 Hospitalization Ordered by Colby Hermosillo MD for Inpatient Admission. Preliminary bd diagnosis is Type 2 diabetes mellitus with foot ulcer; Elevated white blood cell count. Bed requested for Telemetry/MedSurg (Inpatient). Status is Inpatient Admission. Condition is Stable. Problem is new. Symptoms have improved. [facility] 16:45 16:24 03/14/2020 15:47 Hospitalization Ordered by Colby Hermosillo MD for Inpatient janel Admission. Preliminary diagnosis is Type 2 diabetes mellitus with foot ulcer; Elevated white blood cell count. Bed requested for Telemetry/MedSurg (Inpatient). Status is Inpatient Admission. Condition is Stable. Problem is new. Symptoms have improved. bd 17:24 16:45 03/14/2020 15:47 Hospitalization Ordered by Colby Hermosillo MD for Inpatient vc Admission. Preliminary diagnosis is Type 2 diabetes mellitus with foot ulcer; Elevated white blood cell count; Cellulitis and acute lymphangitis of other parts of limb - RIGHT FOOT, DORSUM. Bed requested for Telemetry/MedSurg (Inpatient). Status is Inpatient Admission. Condition is Stable. Problem is new. Symptoms have improved. janel
--- NOTE | 2020-03-14 15:48 | ER ---
Nurse's Notes [facility] Name: Kyrie Olivas Age: 39 yrs Sex: Male : 1980 Arrival Date: 03/14/2020 Time: 14:22 Bed 17 Private MD: Diagnosis: Type 2 diabetes mellitus with foot ulcer;Elevated white blood cell count;Cellulitis and acute lymphangitis of other parts of limb-RIGHT FOOT, DORSUM Presentation: 03/14 14:34 Chief complaint: Patient states: Noticed ulcer to bottom of right foot today. No known ll1 fever. Denies pain, has neuropathy. Coronavirus screen: Proceed with normal triage. Patient denies a cough. Patient denies shortness of breath or difficulty breathing. Patient denies measured and/or subjective temperature greater than 100.4F prior to today's visit. Patient denies travel on a cruise ship or to a country the [facility] currently lists as an affected area. Patient denies contact with known and/or suspected case of COVID-19. Ebola Screen: Patient denies travel to an Ebola-affected area in the 21 days before illness onset. Initial Sepsis Screen: Does the patient meet any 2 criteria? No. Patient's initial sepsis screen is negative. Does the patient have a suspected source of infection? No. Patient's initial sepsis screen is negative. Risk Assessment: Do you want to hurt yourself or someone else? Patient reports no desire to harm self or others. Onset of symptoms was March 14, 2020. 14:34 Method Of Arrival: Ambulatory ll1 14:34 Acuity: GINO 3 ll1 Historical: - Allergies: 14:36 Red Dye; ll1 - PMHx: 14:36 Diabetes - NIDDM; ll1 - PSHx: 14:36 Abscess; ll1 - Social history:: Smoking status: Patient reports the use of cigarette tobacco products, smokes one pack cigarettes per day. Patient/guardian denies using alcohol, street drugs. - Family history:: not pertinent. Screenin:30 Abuse screen: Denies threats or abuse. Nutritional screening: No deficits noted. Tuberculosis screening: No symptoms or risk factors identified. Fall Risk None identified. Assessment: 14:45 General: Appears in no apparent distress. Behavior is cooperative. Pain: Denies pain. Neuro: Level of Consciousness is awake, alert, Oriented to person, place, situation, Appropriate for age. Cardiovascular: Heart tones S1 S2 present Capillary refill < 3 seconds Patient's skin is warm and dry. Respiratory: Airway is patent Respiratory effort is even, unlabored, Respiratory pattern is regular, symmetrical, Breath sounds are clear. GI: No signs and/or symptoms were reported involving the gastrointestinal system. Bowel sounds present X 4 quads. : No signs and/or symptoms were reported regarding the genitourinary system. EENT: No signs and/or symptoms were reported regarding the EENT system. Derm: Skin is red, Skin temperature is warm Wound noted lateral side of right foot Wound is diabetic ulcer, calloused with tunneling noted. No drainage noted Reports neuropathy to BLE. He states that he just noticed the ulcer today and is unsure how long it has been there. 15:15 Reassessment: NS Bolus hung at this time. Pt denies any pain due to neuropathy in his foot. No needs voiced at this time. 16:20 Reassessment: IV antibiotics administered at this time and silvadene applied to lateral right foot. Educated Pt on the importance of being admitted and receiving treatment for his foot to prevent further damage and begin the healing process. pt is concerned about work and asked to speak to the MD again. MD notified and states that he will speak to the Pt. 17:30 Reassessment: Pt taken to 2nd floor via WC with brittany. Vital Signs: 14:34 BP 142 / 94; Pulse 90; Resp 17; Temp 98.3; Pulse Ox 98% ; Pain 0/10; ll1 15:30 BP 131 / 86; Pulse 81; Resp 18; Pulse Ox 100% ; vc 16:00 BP 112 / 86; Pulse 79; Resp 17; Pulse Ox 100% ; vc 16:30 BP 118 / 82; Pulse 74; Resp 17; Pulse Ox 100% ; vc 17:11 BP 129 / 86; Pulse 81; Resp 17; Pulse Ox 100% ; ED Course: 14:22 Patient arrived in ED. am2 14:29 Mino Mata MD is Attending Physician. [facility] 14:36 Triage completed. ll1 14:37 Arm band placed on Patient placed in an exam room, on a stretcher. ll1 15:07 Tresa Rubalcava, RN is Primary Nurse. 15:13 Foot Right 3 View XRAY In Process Unspecified. EDMS 15:17 Initial lab(s) drawn, by me, sent to lab. X-ray(s) taken. Inserted saline lock: 20 jp3 gauge in right forearm, using aseptic technique. Blood collected. Patient maintains SpO2 saturation greater than 95% on room air. 15:18 Sed Rate Sent. jp3 15:18 Comprehensive Metabolic Panel Sent. jp3 15:18 CBC with Diff Sent. jp3 15:45 Wound culture swab sent to lab. jp3 15:46 Colby Mantilla MD is Hospitalizing Provider. [facility] 16:10 Wound care: to ulcer located on ball of right foot was cleaned with Hibiclens, dressed jp3 with 4X4s, silver sulfadiazine applied. 16:30 Patient has correct armband on for positive identification. Placed in gown. Bed in low ah position. Call light in reach. Side rails up X 1. 16:30 No provider procedures requiring assistance completed. Patient admitted, IV remains in ah place. Administered Medications: 15:15 Drug: NS 0.9% 500 ml Route: IV; Rate: bolus; Site: right forearm; ah 16:53 Follow up: IV Status: Completed infusion; IV Intake: 500ml vc 16:23 Drug: Silver SulfADIAZINE Cream 1 % 1 application {Note: right lateral foot.} Route: ah Topical; Site: wound; 16:23 Drug: Zosyn 3.375 grams Route: IVPB; Infused Over: 60 mins; Site: right antecubital; ah 17:21 Follow up: IV Status: Completed infusion; IV Intake: 100ml vc 17:20 Drug: vancoMYCIN 1 grams Route: IVPB; Infused Over: 2 hrs; Site: right forearm; vc 17:20 Follow up: IV Status: Infusion continued upon admission vc Intake: 16:53 IV: 500ml; Total: 500ml. vc 17:21 IV: 100ml; Total: 600ml. vc Outcome: 15:47 Decision to Hospitalize by Provider. [facility] 17:23 Admitted to Med/surg accompanied by tech, via wheelchair, room 211, with chart, Report vc called to AVTAR Tyler 17:23 Condition: good 17:23 Instructed on the need for admit. 17:24 Patient left the ED. vc Signatures: Dispatcher [employer] Mino Pemberton MD MD cha Moreno, Amanda am2 Keith Soto jp3 Maegan Toussaint RN RN Tresa Kenney RN RN Thom Monzon RN RN ll1 Corrections: (The following items were deleted from the chart) 16:45 16:43 Wound care: to ulcer located on ball of right foot was cleaned with Hibiclens, jp3 dressed with 4X4s, jp3
[2020-03-14] MEDS ORDERED: PIPER/TAZO/NS 3.375gm 3.375 GM/100 ML BAG ONE (16:16)
[2020-03-14] MEDS ORDERED: SILVER SULFADIAZINE 1% 25 GM TOP ONE (16:16)
[2020-03-14] MEDS ORDERED: VANCOMYCIN 1 GM/VIAL ONE (16:43)
[2020-03-14] MEDS ORDERED: NA CHLORIDE 0.9% 250 ML ONE (16:45)
[2020-03-14] MEDS ORDERED: D50W 25 GM/50 ML SYRINGE/VIAL IV PRN (17:30)
[2020-03-14] MEDS ORDERED: ONDANSETRON 4 MG/2 ML VIAL IV PRN (17:30)
[2020-03-14] MEDS ORDERED: NA CHLORIDE 0.9% 1,000 ML IV SCH (17:30)
[2020-03-14] MEDS ORDERED: GLUCAGON 1 MG/VIAL IM PRN (17:30)
[2020-03-14] MEDS ORDERED: MORPHINE 2 MG/ML SYR IV PRN (17:30)
[2020-03-14] MEDS ORDERED: ACETAMINOPHEN 325 MG TABLET PO PRN (17:47)
[2020-03-14 17:48] VITALS: BMI 27.1
[2020-03-14] MEDS: NA CHLORIDE 0.9% 1,000 ML IV SCH (17:53)
[2020-03-14] MEDS: INSULIN -REGULAR HUMAN 50 UNIT/0.5 ML ML SQ SCH ×2 (17:59→21:31)
[2020-03-14] MEDS ORDERED: PIPER/TAZO/NS 3.375gm 3.375 GM/100 ML BAG IVPB SCH (18:00)
[2020-03-14] MEDS: SILVER SULFADIAZINE 1% 25 GM TOP SCH (21:32)
[2020-03-14] MEDS ORDERED: DIPHENHYDRAMINE 25 MG TAB/CAP PO PRN (21:46)
[2020-03-15] MEDS: PIPER/TAZO/NS 3.375gm 3.375 GM/100 ML BAG IVPB SCH ×3 (00:12→16:00)
[2020-03-15] MEDS: NA CHLORIDE 0.9% 1,000 ML IV SCH ×3 (02:28→16:08)
[2020-03-15 04:13] LABS: Basophils % 1.2 % (0-1.3); Hematocrit 43.4 % (39.6-49.0); Lymphocytes % 30.8 % (15.3-44.8); MPV 9.8 fL (7.6-11.3); RBC Red Blood Cell Count 5.01 M/uL (4.33-5.43)
[2020-03-15 04:29] LABS: Potassium 4.1 mmol/L (3.5-5.1)
[2020-03-15] MEDS: INSULIN -REGULAR HUMAN 50 UNIT/0.5 ML ML SQ SCH ×4 (08:01→21:00)
[2020-03-15] MEDS: SILVER SULFADIAZINE 1% 25 GM TOP SCH ×2 (08:02→21:00)
[2020-03-15] MEDS ORDERED: D50W 25 GM/50 ML SYRINGE/VIAL IV PRN (15:29)
[2020-03-15] MEDS ORDERED: GLUCAGON 1 MG/VIAL IM PRN (15:29)
[2020-03-15] MEDS ORDERED: HYDRALAZINE HCL 20 MG/ML VIAL IV PRN (15:29)
--- NOTE | 2020-03-15 15:31 | P.CNS ---
Date of Consult: 03/15/20 Chief Complaint: Medical management of diabetes History of Present Illness: 39-year-old male with history of diabetes mellitus type 2 diagnosed 7 years ago, previously controlled on metformin but lost insurance since the last 5 years and have not been on any medication or follow-up since then. Developed numbness and loss of sensation in the lower extremities since over the last 2 years. He currently develop a nonhealing ulcer over the right 4th was seen by surgery and admitted for surgical debridement. Medical team has been consulted for management of diabetes. Patient admits to tobacco use denied any history of hypertension. Allergies Red Dye Allergy (Uncoded 03/14/20 17:32) Unknown Home Medications: NK [No Home Meds] 03/14/20 - Past Medical/Surgical History Diabetic: Yes -: NIDDM -: perirectal abscess -: DiabeticNeuropathy -: I&D perirectal abscess - Social History Smoking Status: Current every day smoker Alcohol use: No CD- Drugs: No Caffeine use: Yes Place of Residence: Home Review of Systems 10-point ROS is otherwise unremarkable Physical Examination Temp Pulse Resp BP Pulse Ox 98.4 F 69 18 125/74 98 03/15/20 12:00 03/15/20 12:00 03/15/20 12:00 03/15/20 12:00 03/15/20 12:00 General: Alert, In no apparent distress, Oriented x3 HEENT: Atraumatic, Normocephalic, PERRLA Neck: Supple, 2+ carotid pulse no bruit, JVD not distended Respiratory: Clear to auscultation bilaterally, Normal air movement Cardiovascular: No edema, Normal pulses, Regular rate/rhythm, Normal S1 S2 Gastrointestinal: Normal bowel sounds, Soft and benign, Non-distended Musculoskeletal: No clubbing, No swelling Integumentary: No rashes, No breakdown, Other (Marline shaped ulcer over the plantar surface of the right foot 5th metatarsal head) Neurological: Normal speech, Normal strength at 5/5 x4 extr Laboratory Data (last 24 hrs) 03/14/20 15:14: Sodium 135 L, Potassium 4.0, BUN 11, Creatinine 1.01, Glucose 271 H, Total Bilirubin 0.5, AST 9 L, ALT 27, Alkaline Phosphatase 141 H - Problems (1) Diabetic foot ulcer Current Visit: Yes Status: Acute (2) Tobacco abuse Current Visit: Yes Status: Acute (3) Diabetes mellitus Current Visit: No Status: Acute (4) Poorly controlled diabetes mellitus Onset Date: 11/08/17 Current Visit: No Status: Chronic Physician Review: Patient Assessed, Agree with Above Assessment and Plan Physician Review Additional Text: Diabetic foot ulcer-on antibiotics with Zosyn -follow of surgical debridement -strict glycemic control discuss -we start patient on Accu-Cheks with insulin sliding scale. -will also restart patient on metformin since normal renal function. -Given history of diabetic neuropathy. We start low-dose Neurontin q.h.s. for now Obtain hemoglobin A1c Tobacco use-cessation advice, start nicotine patch Thank you for this consult, will follow along Critical Care: No Time Spent Managing Pts care (In Minutes): 65
[2020-03-15] MEDS: METFORMIN HCL 500 MG TAB PO SCH (16:12)
[2020-03-15] MEDS ORDERED: GABAPENTIN 100 MG CAP PO SCH (21:00)
[2020-03-16] MEDS: PIPER/TAZO/NS 3.375gm 3.375 GM/100 ML BAG IVPB SCH ×2 (00:15→09:11)
[2020-03-16] MEDS: NA CHLORIDE 0.9% 1,000 ML IV SCH ×2 (02:00→05:48)
[2020-03-16] MEDS: INSULIN -REGULAR HUMAN 50 UNIT/0.5 ML ML SQ SCH ×2 (07:30→13:46)
[2020-03-16 08:47] VITALS: BP 126/76; TEMP 97.4
[2020-03-16] MEDS ORDERED: NICOTINE 21 MG/PAT TD SCH (09:00)
[2020-03-16] MEDS ORDERED: MEDIHONEY 44 ML TOPICAL TUBE TOP SCH (09:00)
[2020-03-16] MEDS: METFORMIN HCL 500 MG TAB PO SCH (09:10)
--- NOTE | 2020-03-16 12:28 | P.PN ---
Subjective Date of Service: 03/16/20 Chief Complaint: Medical management of diabetes Subjective: No new changes, No C/O voiced Physical Examination - Vital Signs Temperature: 97.4 F Blood Pressure: 126/76 Pulse: 66 Respirations: 16 Pulse Ox (%): 97 - Physical Exam General: Alert, In no apparent distress, Oriented x3 HEENT: Atraumatic, Normocephalic, PERRLA Neck: Supple, 2+ carotid pulse no bruit Respiratory: Clear to auscultation bilaterally, Normal air movement Cardiovascular: No edema, Normal pulses, Regular rate/rhythm Gastrointestinal: Normal bowel sounds, Soft and benign, Non-distended Musculoskeletal: No clubbing, No swelling Neurological: Normal speech, Normal strength at 5/5 x4 extr - Studies Medications List Reviewed: Yes Assessment & Plan - Problems (Diagnosis) (1) Diabetic foot ulcer Current Visit: Yes Status: Acute (2) Tobacco abuse Current Visit: Yes Status: Acute (3) Diabetes mellitus Current Visit: No Status: Acute (4) Poorly controlled diabetes mellitus Onset Date: 11/08/17 Current Visit: No Status: Chronic Physician Review: Patient Assessed, Agree with Above Assessment and Plan Physician Review Additional Text: # Diabetes mellitus-continue restarted metformin, still elevated glucose, increase metformin to 1 g b.i.d. -follow hemoglobin A1c -previously not taken any medicines since the last 3 years, may need mall oral hypoglycemic medication - continue Accu-Cheks with insulin sliding scale for now # right foot 5th metatarsal head ulcer-on antibiotics per surgery #Tobacco use-on nicotine patch now Time Spent Managing Pts Care (In Minutes): 35
[2020-03-16] MEDS ORDERED: METFORMIN HCL 500 MG TAB PO SCH (13:00)
[2020-03-16 13:19] LABS: Potassium 3.9 mmol/L (3.5-5.1)
--- NOTE | 2020-03-16 13:19 | P.PN ---
Date of Service: 03/16/20 S: The patient has no specific complaints today. O: His foot is clean, no evidence of any erythema or drainage. A: Surgically stable P: This patient, has a diabetic foot ulcer. He was evaluated by the wound care. I agree with their clinical assessment. We will discharge him at this time on oral antibiotics, and have him follow up at the wound Care Center. His diabetes medical management was discussed with him. The hospitalist will decide on what treatment is needed for that issue. He may return to work. If he has any questions or problems, he is return back to emergency room or contact me. He has been instructed in wound care for the interim time period. Once again emphasized need a keep the wound clean, dry and change socks and dressings frequently, and to hopefully give up smoking. He also needs to get his diabetes under better control.
[2020-03-16 14:40] VITALS: O2SAT 98
== END 2020-03-16 15:08 | disposition home or self-care (01) | DRG 639 ==
LOC: ER 14:18 → ERHOLD 15:50 → 2ND 16:52
PROVIDERS: ADMIT Surgery; ATTEND Surgery
DX: E11.621 Type 2 diabetes mellitus with foot ulcer (principal); L97.519 Non-pressure chronic ulcer of other part of right foot with unspecified severity; E11.40 Type 2 diabetes mellitus with diabetic neuropathy, unspecified; F17.200 Nicotine dependence, unspecified, uncomplicated; T38.3X6A Underdosing of insulin and oral hypoglycemic [antidiabetic] drugs, initial encounter; Z91.128 Patient's intentional underdosing of medication regimen for other reason; Z91.09 Other allergy status, other than to drugs and biological substances; Z79.84 Long term (current) use of oral hypoglycemic drugs
CPT/HCPCS: 36415; 80048; 80053; 82947; 83036; 84443; 85025; 85652; 87070; 87077; 87186; 87205; 96361; 96365; 96375; 99251; 99285; J2543; J7030; J7040

== ENCOUNTER 2020-04-05 20:57 | Inpatient (IN) | payer SELFPAY ==
[2020-04-05] MEDS ORDERED: NA CHLORIDE 0.9% 2,000 ML ONE (22:00)
[2020-04-05] MEDS ORDERED: PIPER/TAZO/NS 3.375gm 3.375 GM/100 ML BAG ONE (22:08)
[2020-04-05] MEDS ORDERED: VANCOMYCIN 1 GM/VIAL ONE (22:08)
[2020-04-05] MEDS ORDERED: NA CHLORIDE 0.9% 250 ML ONE (22:08)
[2020-04-05 22:10] LABS: Absolute Lymphocytes (CBC) 2.7 K/uL (0.7-4.9); Basophils % 0.7 % (0-1.3); Hematocrit 47.2 % (39.6-49.0); Lymphocytes % 15.3 % (15.3-44.8); MPV 9.3 fL (7.6-11.3); RBC Red Blood Cell Count 5.31 M/uL (4.33-5.43)
[2020-04-05] MEDS ORDERED: ONDANSETRON 4 MG/2 ML VIAL ONE (22:13)
[2020-04-05] MEDS ORDERED: MORPHINE 4 MG/ML SYR ONE (22:13)
[2020-04-05] MEDS ORDERED: ACETAMINOPHEN 500 MG TAB ONE (22:13)
[2020-04-05 22:21] LABS: ALT/SGPT 27 U/L (12-78); AST/SGOT 15 U/L (15-37); Albumin 3.9 g/dL (3.4-5.0); Alkaline Phosphatase 161 U/L (45-117); Amylase 35 U/L (25-115); BUN Blood Urea Nitrogen 12 mg/dL (7-18); Bicarbonate 27 mmol/L (21-32); Bilirubin Direct 0.2 mg/dL (0-0.2); Bilirubin Total 0.6 mg/dL (0.2-1.0); CKMB Creatine Kinase MB 3.2 ng/mL (0.3-3.6); Creatine Phosphokinase 113 U/L (39-308); Glucose Level 158 mg/dL (74-106); Lipase 186 U/L (73-393); Potassium 4.4 mmol/L (3.5-5.1); Protein, Total 8.8 g/dL (6.4-8.2); Sodium Level 133 mmol/L (136-145); Troponin (Emerg Dept Use Only) < 0.02 ng/mL (0.0-0.045)
[2020-04-05 22:28] LABS: Protime INR 1.19
[2020-04-05 22:31] LABS: Urine Blood NEGATIVE (NEG); Urine Glucose TRACE (NEG); Urine Protein NEGATIVE (NEG); Urine pH 7.5 (5.0-7.0)
[2020-04-05 22:35] LABS: Urine Bacteria <20 /HPF (NONE SEEN); Urine Culture Reflex Order NOT NEEDED; Urine RBC <5 /HPF (NONE SEEN)
--- NOTE | 2020-04-05 23:23 | ER ---
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 Coronavirus screen: Proceed with normal triage. Ebola Screen: No symptoms or risks identified at this time. Initial Sepsis Screen: Does the patient meet any 2 criteria? Temp <36.0*C (96.8*F)) or > 38.3*C (100.9*F). HR > 90 bpm. Yes Does the patient have a suspected source of infection? Yes: Skin breakdown/wound. Risk Assessment: Do you want to hurt yourself or someone else? Patient reports no desire to harm self or others. Onset of symptoms was April 05, 2020. 21:25 Method Of Arrival: Ambulatory lp1 21:25 Acuity: GINO 2 lp1 Historical: - Allergies: 21:30 Red Dye; lp1 - Home Meds: 21:30 metformin 1,000 mg Oral tr24 1 tab once daily [Active]; lp1 - PMHx: 21:30 Diabetes - NIDDM; lp1 - PSHx: 21:30 None; lp1 - Immunization history:: Adult Immunizations up to date. - Social history:: Smoking status: Patient reports the use of cigarette tobacco products, smokes one-half pack cigarettes per day. Screenin:30 Abuse screen: Denies threats or abuse. Denies injuries from another. Nutritional lp1 screening: No deficits noted. Tuberculosis screening: No symptoms or risk factors identified. Fall Risk None identified. Assessment: 22:00 General: Appears ill, Behavior is calm, cooperative. rv 22:00 Pain: Complains of pain in right foot Pain currently is 8 out of 10 on a pain scale. rv Neuro: Level of Consciousness is awake, alert, obeys commands, Oriented to person, place, time, situation. Cardiovascular: Patient's skin is warm and dry. Rhythm is sinus tachycardia. Respiratory: Airway is patent Respiratory effort is even, unlabored, Respiratory pattern is regular. Derm: Wound noted right foot. Musculoskeletal: No signs and/or symptoms reported regarding the musculoskeletal system. Vital Signs: 21:25 BP 142 / 100; Pulse 107; Resp 18; Temp 103.2(O); Pulse Ox 99% on R/A; Weight 97.52 kg lp1 (R); Height 6 ft. 2 in. (187.96 cm); Pain 9/10; 22:00 BP 112 / 84; Pulse 110; Resp 20; Temp 99.7; Pulse Ox 100% on R/A; rv 23:09 BP 121 / 82; Pulse 96; Resp 25; Pulse Ox 100% on R/A; rv 04/06 00:00 BP 102 / 62; Pulse 94; Resp 19; Pulse Ox 99% ; rv 01:00 BP 100 / 68; Pulse 89; Resp 17; Pulse Ox 100% on R/A; rv 02:00 BP 102 / 70; Pulse 88; Resp 16; Pulse Ox 99% on R/A; rv 02:45 Temp 97.8(TE); jb4 04/05 21:25 Body Mass Index 27.60 (97.52 kg, 187.96 cm) lp1 ED Course: 04/05 21:00 Patient arrived in ED. cf2 21:30 Triage completed. lp1 21:30 Arm band placed on left wrist. lp1 21:30 Inserted saline lock: 18 gauge in right antecubital area, using aseptic technique. rv Blood collected. 21:30 IV is patent, with fluids infusing freely, with good blood return, Patient admitted, IV rv remains in place. 21:34 Landon Lemus MD is Attending Physician. tw4 21:50 Trip Das RN is Primary Nurse. rv 22:00 Patient has correct armband on for positive identification. Placed in gown. Bed in low rv position. security monitor on. Pulse ox on. NIBP on. 22:18 Chest Single View XRAY In Process Unspecified. EDMS 23:20 Chrissy Vega MD is Hospitalizing Provider. tw4 04/06 03:14 No provider procedures requiring assistance completed. rv Administered Medications: 04/05 21:30 Drug: NS 0.9% (30 ml/kg) 30 ml/kg Route: IV; Rate: bolus; Site: right forearm; rv 04/06 03:16 Follow up: IV Status: Completed infusion; IV Intake: 3000ml rv 04/05 22:11 Drug: Zosyn 3.375 grams Route: IVPB; Infused Over: 60 mins; Site: right forearm; rv 22:57 Follow up: IV Status: Completed infusion; IV Intake: 100ml rv 22:15 Drug: morphine 4 mg {Note: RASS 0.} Route: IVP; Site: right forearm; rv 04/06 03:16 Follow up: Response: No adverse reaction; Marked relief of symptoms; RASS: Alert and rv Calm (0) 04/05 22:15 Drug: Zofran (Ondansetron) 4 mg Route: IVP; Site: right forearm; rv 04/06 03:16 Follow up: Response: No adverse reaction rv 04/05 22:30 Drug: Tylenol 1000 mg Route: PO; rv 23:00 Follow up: Response: Temperature is decreased rv 22:58 Drug: vancoMYCIN 1 grams Route: IVPB; Infused Over: 2 hrs; Site: right forearm; rv 04/06 03:16 Follow up: IV Status: Completed infusion; IV Intake: 250ml rv Intake: 04/05 22:57 IV: 100ml; Total: 100ml. rv 04/06 03:16 IV: 3000ml; Total: 3100ml. rv 03:16 IV: 250ml; Total: 3350ml. rv Outcome: 04/05 23:22 Decision to Hospitalize by Provider. 4 04/06 03:15 Admitted to Med/surg accompanied by tech, via wheelchair, room 222, on monitor, with rv chart. Condition: good Instructed on the need for admit, Demonstrated understanding of instructions. 03:17 Patient left the ED. rv Signatures: Dispatcher [employer] EDMS Caitlyn Chairez RN RN lp1 Colby Blanchard RN RN jb4 Landon Lemus MD MD tw4 Trip Das RN RN rv Nisha Juarez cf2 Corrections: (The following items were deleted from the chart) 04/05 21:31 21:25 Acuity: GINO 3 lp1 lp1
--- NOTE | 2020-04-05 23:23 | EDPHYS ---
Physician Documentation [facility] Name: Kyrie Olivas Age: 39 yrs Sex: Male : 1980 Arrival Date: 04/05/2020 Time: 21:00 Bed 8 Private MD: ED Physician Landon Lemus HPI: 04/06 06:44 This 39 yrs old Male presents to ER via Ambulatory with complaints of Ulcer tw4 on Foot, Shoulder Pain. 06:44 the patient presents with a swollen area of the ball of right foot. Description: The tw4 affected area is small, localized, erythematous, swollen, tense. Onset: The symptoms/episode began/occurred 3 week(s) ago. Possible cause(s): unknown. Associated signs and symptoms: Pertinent positives: fever. Modifying factors: the symptoms are alleviated by remaining still, the symptoms are aggravated by movement, walking. Severity of symptoms: At their worst the symptoms were moderate, in the emergency department the symptoms are unchanged. The patient has not experienced similar symptoms in the past. Historical: - Allergies: 04/05 21:30 Red Dye; lp1 - Home Meds: 21:30 metformin 1,000 mg Oral tr24 1 tab once daily [Active]; lp1 - PMHx: 21:30 Diabetes - NIDDM; lp1 - PSHx: 21:30 None; lp1 - Immunization history:: Adult Immunizations up to date. - Social history:: Smoking status: Patient reports the use of cigarette tobacco products, smokes one-half pack cigarettes per day. ROS: 04/06 06:44 Constitutional: Negative for fever, chills, and weight loss, Eyes: Negative for injury, tw4 pain, redness, and discharge, Cardiovascular: Negative for chest pain, palpitations, and edema, Respiratory: Negative for shortness of breath, cough, wheezing, and pleuritic chest pain, Abdomen/GI: Negative for abdominal pain, nausea, vomiting, diarrhea, and constipation, Back: Negative for injury and pain, MS/Extremity: Negative for injury and deformity, Neuro: Negative for headache, weakness, numbness, tingling, and seizure. Skin: Positive for cellulitis, Negative for abrasions, abscesses, avulsion, lesions, pallor. Exam: 06:44 Constitutional: This is a well developed, well nourished patient who is awake, alert, tw4 and in no acute distress. Head/Face: Normocephalic, atraumatic. Chest/axilla: Normal chest wall appearance and motion. Nontender with no deformity. No lesions are appreciated. Cardiovascular: Regular rate and rhythm with a normal S1 and S2. No gallops, murmurs, or rubs. Normal PMI, no JVD. No pulse deficits. Respiratory: Lungs have equal breath sounds bilaterally, clear to auscultation and percussion. No rales, rhonchi or wheezes noted. No increased work of breathing, no retractions or nasal flaring. Abdomen/GI: Soft, non-tender, with normal bowel sounds. No distension or tympany. No guarding or rebound. No evidence of tenderness throughout. Back: No spinal tenderness. No costovertebral tenderness. Full range of motion. MS/ Extremity: Pulses equal, no cyanosis. Neurovascular intact. Full, normal range of motion. Neuro: Awake and alert, GCS 15, oriented to person, place, time, and situation. Cranial nerves II-XII grossly intact. Motor strength 5/5 in all extremities. Sensory grossly intact. Cerebellar exam normal. Normal gait. 06:44 Skin: cellulitis, that is moderate, well demarcated, on the ball of right foot. Vital Signs: 04/05 21:25 BP 142 / 100; Pulse 107; Resp 18; Temp 103.2(O); Pulse Ox 99% on R/A; Weight 97.52 kg lp1 (R); Height 6 ft. 2 in. (187.96 cm); Pain 9/10; 22:00 BP 112 / 84; Pulse 110; Resp 20; Temp 99.7; Pulse Ox 100% on R/A; rv 23:09 BP 121 / 82; Pulse 96; Resp 25; Pulse Ox 100% on R/A; rv 04/06 00:00 BP 102 / 62; Pulse 94; Resp 19; Pulse Ox 99% ; rv 01:00 BP 100 / 68; Pulse 89; Resp 17; Pulse Ox 100% on R/A; rv 02:00 BP 102 / 70; Pulse 88; Resp 16; Pulse Ox 99% on R/A; rv 02:45 Temp 97.8(TE); jb4 04/05 21:25 Body Mass Index 27.60 (97.52 kg, 187.96 cm) lp1 MDM: 04/05 21:34 Patient medically screened. 04/06 06:44 Differential diagnosis: abscess, cellulitis. Data reviewed: vital signs, nurses notes. Data reviewed: lab test result(s), CBC, electrolytes, hepatic panel, radiologic studies, plain films. Data interpreted: Pulse oximetry: Interpretation: normal. Test interpretation: by ED physician or midlevel provider: plain radiologic studies. Counseling: I had a detailed discussion with the patient and/or guardian regarding: the historical points, exam findings, and any diagnostic results supporting the discharge/admit diagnosis, lab results, radiology results. Physician consultation: Chrissy Vega MD regarding admission, to the medical/surgical unit. patient's condition, and will see patient in inpatient room. 04/05 21:41 Order name: Amylase, Serum; Complete Time: 23:16 [facility] [place] 04/05 23:17 Interpretation: Within normal limits: LORIE 35. [facility] [place] 04/05 21:41 Order name: Basic Metabolic Panel; Complete Time: 23:16 [facility] [place] 04/05 23:16 Interpretation: Normal except: NA 133; CL 97; GLUC 158; GFR 78. 04/05 21:41 Order name: Blood Culture Adult (2) [facility] [place] 04/05 21:41 Order name: CBC with Diff; Complete Time: 23:16 [facility] [place] 04/05 23:17 Interpretation: Normal except: WBC 17.3. 04/05 21:41 Order name: Ckmb; Complete Time: 23:16 [facility] [place] 04/05 23:17 Interpretation: Within normal limits: CKMB 3.2. 04/05 21:41 Order name: CPK; Complete Time: 23:16 [facility] [place] 04/05 23:17 Interpretation: Within normal limits: CPK 113. 04/05 21:41 Order name: Lactate; Complete Time: 23:16 [facility] [place] 04/05 23:17 Interpretation: Within normal limits: LAC 1.9. 04/05 21:41 Order name: LFT's; Complete Time: 23:16 [facility] [place] 04/05 23:17 Interpretation: Normal except: ALK 161; TP 8.8; GLOB 4.9; A/G 0.8. [facility] [place] 04/05 21:41 Order name: Lipase; Complete Time: 23:16 tw4 04/05 23:17 Interpretation: LIP 186. 04/05 21:41 Order name: Procalcitonin; Complete Time: 23:16 04/05 21:41 Order name: Protime (+inr); Complete Time: 23:16 04/05 23:17 Interpretation: Within normal limits: PT 14.0. 04/05 21:41 Order name: Ptt, Activated; Complete Time: 23:16 04/05 21:41 Order name: Troponin (emerg Dept Use Only); Complete Time: 23:16 04/05 21:41 Order name: Urine Microscopic Only; Complete Time: 23:16 04/05 21:41 Order name: Chest Single View XRAY [facility] [place] 04/05 21:41 Order name: Accucheck; Complete Time: 22:12 04/05 21:41 Order name: Cardiac monitoring; Complete Time: 22:12 04/05 21:41 Order name: EKG - Nurse/Tech; Complete Time: 22:12 04/05 21:57 Order name: Urine Dipstick--Ancillary (enter results); Complete Time: 23:16 [facility] 04/05 23:17 Interpretation: Normal except: UPH 7.5. 04/05 22:34 Order name: Wound Culture lp1 04/06 00:24 Order name: CONS Pharmacy Consult [facility] 04/06 00:24 Order name: CONS Pharmacy Consult [facility] 04/06 00:24 Order name: CONS Physician Consult [facility] 04/06 00:25 Order name: Heart Healthy [facility] 04/05 21:41 Order name: IV Saline Lock - Large Bore; Complete Time: 22:12 04/05 21:41 Order name: Labs collected and sent; Complete Time: 22:12 04/05 21:41 Order name: O2 Per Protocol; Complete Time: 22:16 04/05 21:41 Order name: O2 Sat Monitoring; Complete Time: 22:16 04/05 21:41 Order name: Urine Dipstick-Ancillary (obtain specimen); Complete Time: 22:16 tw4 EC:47 Rate is 102 beats/min. Rhythm is regular. QRS [place] is Normal. QRS interval is normal. tw4 QT interval is normal. No Q waves. T waves are Normal in lead III. T waves are Inverted. T waves are Flattened. No ST changes noted. Clinical impression: Sinus tachycardia. Interpreted by me. Reviewed by me. Administered Medications: 04/05 21:30 Drug: NS 0.9% (30 ml/kg) 30 ml/kg Route: IV; Rate: bolus; Site: right forearm; rv 04/06 03:16 Follow up: IV Status: Completed infusion; IV Intake: 3000ml rv 04/05 22:11 Drug: Zosyn 3.375 grams Route: IVPB; Infused Over: 60 mins; Site: right forearm; rv 22:57 Follow up: IV Status: Completed infusion; IV Intake: 100ml rv 22:15 Drug: morphine 4 mg {Note: RASS 0.} Route: IVP; Site: right forearm; rv 04/06 03:16 Follow up: Response: No adverse reaction; Marked relief of symptoms; RASS: Alert and rv Calm (0) 04/05 22:15 Drug: Zofran (Ondansetron) 4 mg Route: IVP; Site: right forearm; rv 04/06 03:16 Follow up: Response: No adverse reaction rv 04/05 22:30 Drug: Tylenol 1000 mg Route: PO; rv 23:00 Follow up: Response: Temperature is decreased rv 22:58 Drug: vancoMYCIN 1 grams Route: IVPB; Infused Over: 2 hrs; Site: right forearm; rv 04/06 03:16 Follow up: IV Status: Completed infusion; IV Intake: 250ml rv Disposition: 04/05/20 23:22 Hospitalization ordered by Chrissy Vega for Inpatient Admission. Preliminary diagnosis are Personal history of diabetic foot ulcer, Type 2 diabetes mellitus with foot ulcer, Cellulitis of right lower limb. - Bed requested for Telemetry/MedSurg (Inpatient). - Status is Inpatient Admission. rv - Condition is Stable. - Problem is new. - Symptoms are unchanged. Signatures: Dispatcher [employer] EDCaitlyn Henderson RN RN lp1 Ade Rao RN RN Landon Lemus MD MD tw4 Trip Das RN RN rv Corrections: (The following items were deleted from the chart) 02:20 04/05 23:22 Hospitalization Ordered by Chrissy Vega MD for Inpatient Admission. cg Preliminary diagnosis is Personal history of diabetic foot ulcer; Type 2 diabetes mellitus with foot ulcer; Cellulitis of right lower limb. Bed requested for Telemetry/MedSurg (Inpatient). Status is Inpatient Admission. Condition is Stable. Problem is new. Symptoms are unchanged. tw4 04/06 03:17 02:20 04/05/2020 23:22 Hospitalization Ordered by Chrissy Vega MD for Inpatient rv Admission. Preliminary diagnosis is Personal history of diabetic foot ulcer; Type 2 diabetes mellitus with foot ulcer; Cellulitis of right lower limb. Bed requested for Telemetry/MedSurg (Inpatient). Status is Inpatient Admission. Condition is Stable. Problem is new. Symptoms are unchanged.
[2020-04-06] MEDS ORDERED: ACETAMINOPHEN 500 MG TAB PO PRN (00:20)
[2020-04-06] MEDS ORDERED: ONDANSETRON 4 MG/2 ML VIAL IV PRN (00:20)
[2020-04-06] MEDS ORDERED: MORPHINE 4 MG/ML SYR IV PRN (00:20)
[2020-04-06] MEDS ORDERED: VANCOMYCIN/NS 1 gm 1 GM/250 ML BAG IVPB SCH (00:30)
[2020-04-06 03:07] VITALS: BMI 26.9
[2020-04-06] MEDS: NA CHLORIDE 0.9% 1,000 ML IV SCH ×2 (03:24→17:33)
[2020-04-06] MEDS: Levofloxacin500mg IV 500 MG/100 ML BAG IV SCH (03:24)
[2020-04-06] MEDS ORDERED: VANCOMYCIN 1 GM/VIAL ONE (04:11)
[2020-04-06] MEDS ORDERED: NA CHLORIDE 0.9% 500 ML ONE (04:11)
[2020-04-06] MEDS: VANCOMYCIN 1.75 GM in NA CHLORIDE 0.9% 500 ML IVPB SCH ×2 (05:33→17:32)
[2020-04-06 06:18] LABS: Absolute Lymphocytes (CBC) 2.9 K/uL (0.7-4.9); Basophils % 0.6 % (0-1.3); Hematocrit 39.7 % (39.6-49.0); Lymphocytes % 20.8 % (15.3-44.8); MPV 9.4 fL (7.6-11.3); RBC Red Blood Cell Count 4.58 M/uL (4.33-5.43)
[2020-04-06 06:23] LABS: BUN Blood Urea Nitrogen 9 mg/dL (7-18); Bicarbonate 28 mmol/L (21-32); Glucose Level 164 mg/dL (74-106); Potassium 3.9 mmol/L (3.5-5.1); Sodium Level 137 mmol/L (136-145)
--- NOTE | 2020-04-06 07:57 | RAD REPORT ---
EXAM DESCRIPTION: Jessy Single View04/05/2020 10:18 pm CLINICAL HISTORY: fever COMPARISON: 2012 FINDINGS: The lungs appear clear of acute infiltrate. The heart is normal size IMPRESSION: No acute abnormalities displayed
--- NOTE | 2020-04-06 08:29 | P.HP ---
Certification for Inpatient Patient admitted to: Inpatient With expected LOS: >2 Midnights Patient will require the following post-hospital care: None Practitioner: I am a practitioner with admitting privileges, knowledge of patient current condition, hospital course, and medical plan of care. Services: Services provided to patient in accordance with Admission requirements found in Title 42 Section 412.3 of the Code of Federal Regulations Patient History Date of Service: 04/06/20 Reason for admission: Osteomyelitis/cellulitis of the right foot; type 2 diabetes History of Present Illness: Patient is a 39-year-old gentleman seen hospital with pain of the right foot. Patient has significant erythema and edema of the right foot. The right foot is been infected in the past. He has never been diagnosed with osteomyelitis. He has no diabetic foot ulcer that is been treated at wound care. He states he is going to work and they been raining heavily over the last few days in his foot got why. He says ever since then his foot is been hurting really badly. He started noticing that he was becoming more erythematous so he came into the emergency room for further evaluation. Will check a hemoglobin A1c as well as get General surgery consultation. Patient will also get MRI of the foot to further evaluate. Patient will get discharge disposition pending workup. Allergies No Known Allergies Allergy (Verified 04/06/20 03:34) Home Medications: Metformin HCl 1,000 mg PO BID 30 Days #60 tablet 03/16/20 - Past Medical/Surgical History Diabetic: Yes -: Type 2 diabetes -: perirectal abscess -: Diabetic neuropathy -: I&D perirectal abscess - Family History Father History Unknown: Yes - Social History Smoking Status: Current every day smoker Alcohol use: No CD- Drugs: No Caffeine use: Yes Place of Residence: Home Review of Systems 10-point ROS is otherwise unremarkable Physical Examination - Vital Signs Temperature: 99.4 F Blood Pressure: 95/56 Pulse: 80 Respirations: 18 Pulse Ox (%): 96 - Physical Exam General: Alert, In no apparent distress, Oriented x3 HEENT: Atraumatic, PERRLA, Mucous membr. moist/pink, EOMI, Sclerae nonicteric Neck: Supple, 2+ carotid pulse no bruit, No LAD, Without JVD or thyroid abnormality Respiratory: Clear to auscultation bilaterally, Normal air movement Cardiovascular: Regular rate/rhythm, Normal S1 S2, No murmurs Gastrointestinal: Normal bowel sounds, Soft and benign, Non-distended, No tenderness Musculoskeletal: No clubbing, No swelling, Erythema, Tenderness, Warmth, Other (Right foot is erythematous tender any as of diabetic foot ulcer at the ball of his right foot) Integumentary: No rashes, Tenderness/swelling, Erythema, Warmth, Diabetic ulcer Neurological: Normal gait, Normal speech, Normal strength at 5/5 x4 extr, Normal tone, Sensation intact, Cranial nerves 3-12 intact, Normal affect Lymphatics: No axilla or inguinal lymphadenopathy - Studies Laboratory Data (last 24 hrs) 04/05/20 21:45: PT 14.0 H, INR 1.19, APTT 36.6 04/05/20 21:45: WBC 17.3 H, Hgb 15.5, Hct 47.2, Plt Count 247 04/05/20 21:45: Sodium 133 L, Potassium 4.4, BUN 12, Creatinine 1.05, Glucose 158 H, Total Bilirubin 0.6, AST 15, ALT 27, Alkaline Phosphatase 161 H, Amylase 35, Lipase 186 Assessment & Plan - Problems (Diagnosis) (1) Diabetic foot ulcer Current Visit: Yes Status: Acute Qualifiers: Diabetic foot ulcer location: midfoot Diabetes mellitus type: type 1 Laterality: right Non-pressure ulcer stage: with bone involvement without evidence of necrosis Qualified Code(s): E10.621 - Type 1 diabetes mellitus with foot ulcer; L97.416 - 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 Continue with IV antibiotic 2. Continue with local wound care 3. Wound care consultation/surgical consultation 4. Gentle IV hydration 5. Monitor CBC, sed rate, A1c level, CMP 6. Strict blood sugar monitoring 7. Pain control 8. MRI of the right foot 9. Check hemoglobin A1c. 10. GI and DVT prophylaxis Discharge Plan: Home Plan to discharge in: Greater than 2 days - Advance Directives Does patient have a Living Will: No Does patient have a Durable POA for Healthcare: No - Code Status/Comfort Care Code Status Assessed: Yes Code Status: Full Code Critical Care: No Time Spent Managing PTS Care (In Minutes): 45
--- NOTE | 2020-04-06 10:47 | EKG ---
Test Date: 2020-04-05 Test Time: 21:47:14 Enrollment Specialist: REUBEN MEASUREMENT RESULTS: Intervals: Rate: 102 MI: 138 QRSD: 80 QT: 316 QTc: 411 [place]: P: 25 MI: 138 QRS: 36 T: 38 INTERPRETIVE STATEMENTS: Sinus tachycardia Possible Left atrial enlargement Borderline ECG Compared to ECG 06/27/2004 09:25:00 Sinus bradycardia no longer present Electronically Signed On 04-06-20 10:47:09 CDT by Lavelle Whitt
[2020-04-06] MEDS ORDERED: MORPHINE 2 MG/ML SYR ONE (12:08)
--- NOTE | 2020-04-06 13:39 | RAD REPORT ---
EXAM DESCRIPTION: RAD - Foot Right 3 View - 04/06/2020 1:24 pm CLINICAL HISTORY: osteo Foot wound, pain and swelling COMPARISON: Foot Right 3 View dated 03/14/2020 FINDINGS: Soft tissue ulceration is seen along the lateral margin of the forefoot soft tissues adjac ent to the fifth toe. There is no definitive plain radiograph evidence osteomyelitis seen. No soft ti ssue air.
--- NOTE | 2020-04-06 15:49 | P.PN ---
Subjective Date of Service: 04/06/20 Chief Complaint: Osteomyelitis/cellulitis of the right foot; type 2 diabetes Physical Examination - Vital Signs Temperature: 98.8 F Blood Pressure: 119/68 Pulse: 87 Respirations: 18 Pulse Ox (%): 96 - Studies Laboratory Data (last 24 hrs) 04/05/20 21:45: PT 14.0 H, INR 1.19, APTT 36.6 04/05/20 21:45: WBC 17.3 H, Hgb 15.5, Hct 47.2, Plt Count 247 04/05/20 21:45: Sodium 133 L, Potassium 4.4, BUN 12, Creatinine 1.05, Glucose 158 H, Total Bilirubin 0.6, AST 15, ALT 27, Alkaline Phosphatase 161 H, Amylase 35, Lipase 186 Assessment & Plan Physician Review Additional Text: Spoke to Surgery. No osteomyelitis on xray. Continue with wound care. Likely no need for mcfp IV antibiotics. Likely DC tomorrow and follow up with Surgery at Wound care center. Will discuss with bottoming room inspector who is taking care patient.
--- NOTE | 2020-04-06 16:29 | RAD REPORT ---
EXAM DESCRIPTION: MRI - Foot Right Wo Cont - 04/06/2020 4:17 pm CLINICAL HISTORY: osteo? Pain and swelling with lateral ulceration of the foot, possible osteomyelitis. COMPARISON: Foot Right 3 View dated 04/06/2020; Chest Single View dated 04/05/2020; Foot Right 3 View dated 03/14/2020 FINDINGS: Diminished T1 increased T2 signal is seen involving the base of the proximal phalanx of th e fifth toe. There is mild marrow edema as well this region. The surrounding soft tissues are thicken ed and edematous. Focal ulceration noted in the soft tissues along lateral margin of the forefoot oziel r the base of the fifth toe. This tissue abnormality appears to extend along the plantar aspect as we ll. No fracture evident. No soft tissue mass or hematoma. IMPRESSION: Early/mild findings of osteomyelitis seen involving base of the proximal phalanx of the fifth toe.
--- NOTE | 2020-04-06 19:39 | CON ---
Date of Consultation: 04/06/2020 Brief History Of Present Illness: Patient is a 39-year-old male seen in the hospital with pain to the right foot. He has significant erythema and edema into the right foot and has had infect ions before in the past as he has a history of diabetes. He has never been diagnosed with osteomyeli tis by his report. He has no treatment to this area and has been noticing that because of the increa sed rain lately he has been getting his foot more damp lately and is concerned that there may be an i nfection there as such came to the emergency room with the above stated complaints. Past Medical History: Significant for type 2 diabetes, diabetic neuropathy, perirectal abscesses. Past Surgical History: Includes I and D of perirectal abscess. Home Medications: Include metformin. Allergies: NO KNOWN DRUG ALLERGIES. Habits: He smokes cigarettes everyday. Denies alcohol or recreational drug use. Review of Systems: Ten-point review of systems other than in HPI, denies. Physical Examination: Vital Signs: At the time of examination his blood pressure was 119/68, pulse was 87, respiratory rat e 18, temperature 98.8. General: He is awake, alert, and oriented. Psychiatric: Appropriate, conversive. HEENT: Normocephalic. Sclerae icteric. Mucous membranes are moist. Oropharynx clear. Neck: Supple. No JVD. Chest: Normal expansion and excursion. Cardiovascular: Regular rate and rhythm. Pulmonary: Clear to auscultation bilaterally. Abdomen: Soft. Extremities: Focused examination of the right lower extremity shows a plantar wound over the first m etatarsal head with surrounding erythematous changes. There is a dark eschar there. No drainable fl uid collections at this point. This is consistent with a diabetic foot ulcer approximately the size of a quarter with significant heaped up callus surrounding. There is a quarter-size wound on the tania ntar aspect of the fifth toe at the metatarsal region near the metatarsophalangeal joint. Laboratory Data: Reveals a white blood count of 14.2, hemoglobin is 13.3, hematocrit 39.7, platelet count is 213. His PT was 14.0, INR 1.19, PTT is 36.6. His sodium 137, potassium 3.9, chloride 104, carbon dioxide is 28, BUN 9, creatinine 0.9, glucose is 164. His lactic acid was 1.9 on admission. His procalcitonin less than 0.05. UA was essentially negative. He had imaging performed included a foot x-ray, officially read as soft tissue ulceration seen along the lateral margin of the forefoot tissues adjacent to the fifth toe. There was no definitive plain radiographic evidence of osteomyelitis. No soft tissue air. Assessment And Plan: This is a 39-year-old male who comes in with a diabetic foot wound on his right foot plantar aspect. 1.Intravenous antibiotics initially to be transitioned to p.o. per general recommendations. 2.Wound care with Dakin's santyl to be changed daily with half inch to quarter-inch packing or damp to dry with Dakin solution in the area of this with pressure reduction strategies and elevation and c lose followup in the Wound Care Clinic. I have explained the risks, benefits, and alternatives of th e above stated plan, the patient agrees to proceed as indicated. MIKHAIL/KAYLEN Voice ID: [id number] Report ID: [id number]
[2020-04-06] MEDS: MORPHINE 2 MG/ML SYR IV PRN (22:33)
[2020-04-07 01:49] VITALS: O2SAT 95
[2020-04-07] MEDS: Levofloxacin500mg IV 500 MG/100 ML BAG IV SCH (03:23)
[2020-04-07] MEDS: MORPHINE 2 MG/ML SYR IV PRN ×2 (04:12→10:36)
[2020-04-07] MEDS: VANCOMYCIN 1.75 GM in NA CHLORIDE 0.9% 500 ML IVPB SCH (05:17)
[2020-04-07] MEDS: NA CHLORIDE 0.9% 1,000 ML IV SCH (05:25)
[2020-04-07 06:26] LABS: Absolute Lymphocytes (CBC) 2.8 K/uL (0.7-4.9); Basophils % 0.6 % (0-1.3); Hematocrit 39.6 % (39.6-49.0); Lymphocytes % 21.1 % (15.3-44.8); MPV 8.9 fL (7.6-11.3); Protime INR 1.31; RBC Red Blood Cell Count 4.54 M/uL (4.33-5.43)
[2020-04-07 06:35] LABS: BUN Blood Urea Nitrogen 9 mg/dL (7-18); Bicarbonate 27 mmol/L (21-32); Glucose Level 132 mg/dL (74-106); Potassium 4.1 mmol/L (3.5-5.1); Sodium Level 140 mmol/L (136-145)
[2020-04-07] MEDS ORDERED: COLLAGENASE 30 GM OINTMENT TOP SCH ×3 (09:00→15:00)
[2020-04-07] MEDS ORDERED: SODIUM HYPOCHLORITE 0.25% 473 ML TOP SCH ×3 (09:00→15:00)
--- NOTE | 2020-04-07 12:29 | P.DS ---
Admission Date: 04/06/20 Discharge Date: 04/07/20 Primary Care Provider: none Disposition: ROUTINE DISCHARGE Discharge Condition: GOOD Reason for Admission: Osteomyelitis/cellulitis of the right foot; type 2 diabetes Consultations: Surgery-Dr. Arriaga Procedures: MRI Foot: COMPARISON: Foot Right 3 View dated 04/06/2020; Chest Single View dated 04/05/2020; Foot Right 3 View dated 03/14/2020 FINDINGS: Diminished T1 increased T2 signal is seen involving the base of the proximal phalanx of the fifth toe. There is mild marrow edema as well this region. The surrounding soft tissues are thickened and edematous. Focal ulceration noted in the soft tissues along lateral margin of the forefoot near the base of the fifth toe. This tissue abnormality appears to extend along the plantar aspect as well. No fracture evident. No soft tissue mass or hematoma. IMPRESSION: Early/mild findings of osteomyelitis seen involving base of the proximal phalanx of the fifth toe. Medical Problem List: Diabetic foot ulcer to the right plantar aspect with early/mild osteomyelitis involving base of proximal phalanx of 5th toe Diabetes mellitus type 2, uncontrolled Tobacco abuse Brief History of Present Illness: 39-year-old male presented to the emergency room with right foot pain. Patient has diabetic foot ulcer to the lateral plantar region. Patient was admitted for further evaluation. Hospital Course: Patient presented with right foot pain. Patient was admitted for further evaluation and treatment. Osteomyelitis was suspected. Surgery was consulted as well. MRI showed mild early osteomyelitis involving the base of the proximal phalanx of the 5th toe. This was mainly to the plant or lateral region. Patient was given IV antibiotic therapy. Surgery further evaluated the area. No surgical intervention was required. Surgery did not recommend IV antibiotic therapy at this time. Surgery recommended wound care and oral antibiotic therapy with close follow up. At discharge patient will continue with Bactrim DS 1 pill twice daily and doxycycline 100 mg twice daily for 10 days. Patient will continue with wound care. This will include cleaning with Dakin's solution and applying santal daily with half inch to quarter inch packing. Patient will need to comply with pressure reduction strategies to the area. He is to elevate his leg when sitting or lying. Patient will need a follow up with surgery at his office or [facility] within 1 week to further monitor and address. Diabetic foot education will be provided. Patient with underlying diabetes mellitus type 2. Hemoglobin A1c elevated at 9.6. Patient will continue with metformin 1000 mg 1 pill twice daily. Patient will continue with a 2000 ADA diet. Recommend to maintain blood sugars less 140 fasting and less than 200 after meals. Further adjustment and/or additional medication may be required for better diabetic control. This can be further addressed by his PCP. Patient with underlying tobacco abuse. Tobacco cessation addressed in detail. Patient will be provided nicotine patch and education on cessation at discharge. Vital Signs/Physical Exam: Temp Pulse Resp BP Pulse Ox 99 F 77 18 121/66 98 04/07/20 08:00 04/07/20 08:00 04/07/20 10:36 04/07/20 08:00 04/07/20 10:36 General: Alert, In no apparent distress, Oriented x3, Cooperative HEENT: Atraumatic Neck: Supple Respiratory: Clear to auscultation bilaterally, Normal air movement Cardiovascular: Normal pulses, Regular rate/rhythm Gastrointestinal: Normal bowel sounds, No masses, No rebound, No guarding Integumentary: Other (Ulcer to the right lateral foot plantar region near the 5th proximal digit) Neurological: Normal speech, Normal strength at 5/5 x4 extr, Normal tone, Normal affect Laboratory Data at Discharge: WBC 13.4 K/uL (4.3-10.9) H 04/07/20 06:02 Hgb 13.2 g/dL (13.6-17.9) L 04/07/20 06:02 Hct 39.6 % (39.6-49.0) 04/07/20 06:02 Plt Count 196 K/uL (152-406) 04/07/20 06:02 PT 15.4 SECONDS (9.5-12.5) H 04/07/20 06:02 INR 1.31 04/07/20 06:02 APTT 33.5 SECONDS (24.3-36.9) 04/07/20 06:02 Sodium 140 mmol/L (136-145) 04/07/20 06:02 Potassium 4.1 mmol/L (3.5-5.1) 04/07/20 06:02 BUN 9 mg/dL (7-18) 04/07/20 06:02 Creatinine 0.91 mg/dL (0.55-1.3) 04/07/20 06:02 Glucose 132 mg/dL (74-106) H 04/07/20 06:02 Total Bilirubin 0.6 mg/dL (0.2-1.0) 04/05/20 21:45 AST 15 U/L (15-37) 04/05/20 21:45 ALT 27 U/L (12-78) 04/05/20 21:45 Alkaline Phosphatase 161 U/L (45-117) H 04/05/20 21:45 Amylase 35 U/L (25-115) 04/05/20 21:45 Lipase 186 U/L (73-393) 04/05/20 21:45 Home Medications: Collagenase [Santyl Ointment*] 1 appl TOP DAILY #1 tube 04/07/20 Doxycycline Hyclate 100 mg PO BID #20 tablet 04/07/20 Metformin HCl 1,000 mg PO BID #60 tablet 04/07/20 Nicotine [Nicoderm] 1 patch TD DAILY #60 patch.td24 04/07/20 Sulfamethoxazole/Trimethoprim [Bactrim Ds Tablet] 1 each PO BID #20 tablet 04/07/20 New Medications: Sulfamethoxazole/Trimethoprim [Bactrim Ds Tablet] 1 each PO BID #20 tablet Doxycycline Hyclate 100 mg PO BID #20 tablet Metformin HCl 1,000 mg PO BID #60 tablet Nicotine [Nicoderm] 1 patch TD DAILY #60 patch.td24 Collagenase [Santyl Ointment*] 1 appl TOP DAILY #1 tube Patient Discharge Instructions: 1. Recommend to follow up with PCP to follow up hospitalization. 2. Patient presented with right foot pain. Patient was admitted for further evaluation and treatment. Osteomyelitis was suspected. Surgery was consulted as well. MRI showed mild early osteomyelitis involving the base of the proximal phalanx of the 5th toe. This was mainly to the plant or lateral region. Patient was given IV antibiotic therapy. Surgery further evaluated the area. No surgical intervention was required. Surgery did not recommend IV antibiotic therapy at this time. Surgery recommended wound care and oral antibiotic therapy with close follow up. At discharge patient will continue with Bactrim DS 1 pill twice daily and doxycycline 100 mg twice daily for 10 days. Patient will continue with wound care. This will include cleaning with Dakin's solution and applying santal daily with half inch to quarter inch packing. Patient will need to comply with pressure reduction strategies to the area. He is to elevate his leg when sitting or lying. Patient will need a follow up with surgery at his office or [facility] within 1 week to further monitor and address. Diabetic foot education will be provided. 3. Patient with underlying diabetes mellitus type 2. Hemoglobin A1c elevated at 9.6. Patient will continue with metformin 1000 mg 1 pill twice daily. Patient will continue with a 2000 ADA diet. Recommend to maintain blood sugars less 140 fasting and less than 200 after meals. Further adjustment and/or additional medication may be required for better diabetic control. This can be further addressed by his PCP. 4. Patient with underlying tobacco abuse. Tobacco cessation addressed in detail. Patient will be provided nicotine patch and education on cessation at discharge. Diet: ADA Activity: Ad negra Time spent managing pt's care (in minutes): 55
[2020-04-07 13:22] VITALS: BP 124/72; TEMP 99.9
== END 2020-04-07 14:04 | disposition home or self-care (01) | DRG 638 ==
LOC: ER 20:57 → ERHOLD 04-06 00:41 → 2ND 04-06 02:29
PROVIDERS: ADMIT Hospitalist; ATTEND Hospitalist
DX: E11.69 Type 2 diabetes mellitus with other specified complication (principal); M86.8X7 Other osteomyelitis, ankle and foot; L97.416 Non-pressure chronic ulcer of right heel and midfoot with bone involvement without evidence of necrosis; L03.115 Cellulitis of right lower limb; F17.210 Nicotine dependence, cigarettes, uncomplicated; E11.621 Type 2 diabetes mellitus with foot ulcer; E11.40 Type 2 diabetes mellitus with diabetic neuropathy, unspecified; Z79.84 Long term (current) use of oral hypoglycemic drugs
CPT/HCPCS: 36415; 71045; 80048; 80076; 81003; 81015; 82150; 82550; 82553; 82947; 83036; 83605; 83690; 84145; 84484; 85025; 85610; 85652; 85730; 87040; 87070; 87077; 87186; 87205; 93005; 96365; 96366; 96367; 96375; 99285; J2270; J2405; J2543; J3590; J7030; J7040